=== PATIENT | female | born 1945 ===

== ENCOUNTER → 2020-01-11 08:54 | Outpatient (BNVA) | payer OTHER, SELFPAY | PROVIDERS: Visit Provider Surgery | DX: K43.2 Incisional hernia without obstruction or gangrene (principal) | CPT/HCPCS: 99202; 99212 ==

== ENCOUNTER 2020-02-02 09:40 | Outpatient (REF) | payer OTHER, SELFPAY ==
--- NOTE | 2020-02-02 09:42 | CT_ITS ---
EXAMINATION: CT ABDOMEN AND PELVIS WITHOUT CONTRAST CLINICAL INFORMATION: Incisional hernia without obstruction COMPARISON: None TECHNIQUE: Multidetector volumetric imaging was performed from the superior aspect of the liver through the pubic symphysis. Sagittal and coronal reformatted images were obtained on the technologist's workstation. This CT examination was performed using dose optimization techniques as appropriate, variously including the following: *Automated exposure control *Adjustment of mA and/or kV according to patient size (this includes techniques or standardized protocols for targeted exams where dose is matched to indication/reason for exam; i.e. extremities or head) *Use of iterative reconstruction technique DLP: 671 mGy-cm FINDINGS: LUNG BASES: The lung bases are clear. There is coronary artery calcification. LIVER, GALLBLADDER, AND BILIARY TREE: The liver is normal in size, shape, and attenuation. No focal hepatic lesion or biliary ductal dilatation is present. The gallbladder is been removed. PANCREAS: Unremarkable. SPLEEN: Unremarkable. ADRENAL GLANDS: There is a 2 x 2.2 cm low-attenuation left adrenal lesion. Hounsfield units measure -7 suggestive of a benign lipid rich adenoma. The right adrenal gland is normal. KIDNEYS AND URETERS: There are right renal cysts. Largest cyst measures 5 cm. The left kidney is unremarkable. BLADDER: Not optimally distended. GASTROINTESTINAL TRACT: There is diverticulosis of the colon. There are postsurgical changes to the sigmoid colon. There is a abdominal wall hernia containing transverse colon. There are no dilated loops of bowel to suggest obstruction. ABDOMINAL WALL: There are postsurgical changes to the anterior abdominal wall with large ventral mesh. There are least 2 defects in the mesh in the midline. Smaller more superior area contains fat and measures 3.5 x 2.3 x 4.8 cm in sagittal AP and transverse dimension with a 1.5 cm neck. There is a more inferior defect in the midline mesh containing fat and transverse colon. This area measures 5.2 x 3 x 7 cm in sagittal, AP and transverse dimension and has a wider 2 cm neck. This is just above the umbilicus. There is a left inguinal hernia containing fat. LYMPH NODES: Normal. VASCULAR: There is evidence of atherosclerotic disease. No aneurysm is seen. PELVIC VISCERA: The uterus appears to have been removed. No pelvic mass is seen. OSSEOUS STRUCTURES: There are degenerative changes of the spine. There is mild anterior subluxation of L4 with respect L5 probably due to facet arthritis. CT/CT abdomen pelvis wo con IMPRESSION: Evidence of large ventral hernia repair with mesh. There are 2 midline defects in the mesh, smaller more superior defect containing fat and larger more inferior defect just above the umbilicus containing transverse colon and fat. There is no evidence of obstruction. Small left inguinal hernia containing fat. Diverticulosis and postsurgical change to the sigmoid colon. Right renal cysts. Left adrenal adenoma.
== END 2020-02-02 09:41 | disposition home or self-care (01) ==
LOC: HO.CT 09:40
PROVIDERS: Visit Provider Surgery
DX: K43.2 Incisional hernia without obstruction or gangrene (principal)
CPT/HCPCS: 74176

== ENCOUNTER → 2020-02-07 11:09 | Outpatient (BNVA) | payer OTHER, SELFPAY | PROVIDERS: PCP Internal Medicine; Visit Provider Surgery | DX: K43.2 Incisional hernia without obstruction or gangrene (principal) | CPT/HCPCS: 99212 ==

== ENCOUNTER 2020-04-30 09:13 | Inpatient (IN) | payer OTHER, SELFPAY ==
[2020-04-24 12:08] VITALS: BMI 38.0
--- NOTE | 2020-04-25 14:39 | HO.ANESPROP2 ---
Documented by User: Shanna Maldonado 04/26/20 08:12 HPI - Anesthesia Eval Consult details Narrative: 75yo F for Hernia Repair Incisional PCP cleared [facility] Active Problems Active Problems: All Active Problems (Updated 04/23/20 @ 15:22 by Rosenda Strickland) Incisional hernia, without obstruction or gangrene (Acute) Diverticula, colon (Acute) Diabetes mellitus (Acute) HTN (hypertension) with goal to be determined (Acute) Past Medical History Medical History CAD (coronary artery disease) Cancer COVID-19 vaccine administered Diabetes mellitus Elevated cholesterol HTN (hypertension) with goal to be determined Incisional hernia, without obstruction or gangrene Myocardial infarction Personal history of COVID-19 Thyroid disease Surgical History Surgical History Diverticula, colon History of carpal tunnel surgery of right wrist History of colon resection History of excision of mass History of heart artery stent History of hysterectomy for benign disease History of knee surgery History of umbilical hernia repair Hx of cataract extraction Hx of cholecystectomy Hx of partial nephrectomy Hx of thyroidectomy Social History Social History Are you a primary healthcare market consultant to a significant other at home: No Smoking Status: Never smoker Use of substances other than those prescribed or required for medical reasons: No Have you been hit, kicked, punched, or otherwise hurt by someone within the past year? If so, by whom?: No Advance Directives Information Provided: No Recently lost weight without trying: No Meds Allergies Allergy/AdvReac Type Severity Reaction Status Date / Time penicillin G [Penicillin G] Allergy Mild RASH Verified 02/07/20 11:34 Home Medications Medication Instructions Recorded Confirmed Last Taken Type albuterol sulfate 90 mcg/actuation 90 mcg INHALATION Q4H PRN 01/11/20 04/23/20 Unknown History aerosol inhaler aspirin 81 mg tablet,delayed 81 mg PO DAILY 01/11/20 04/23/20 Unknown History release blood sugar diagnostic #10 ea 01/11/20 01/11/20 Unknown History gabapentin 100 mg capsule 100 mg PO BEDTIME 01/11/20 04/23/20 Unknown History hydrochlorothiazide 25 mg tablet 25 mg PO DAILY 01/11/20 04/30/20 04/30/20 05:00 History losartan 100 mg tablet 100 mg PO DAILY 01/11/20 04/23/20 Unknown History omeprazole 20 mg capsule,delayed 20 mg PO DAILY 01/11/20 04/30/20 04/30/20 05:00 History release potassium chloride 10 mEq 10 meq PO BID 01/11/20 04/23/20 Unknown History tablet,extended release sertraline 50 mg tablet 150 mg PO Q OTHER DAY 01/11/20 04/23/20 Unknown History atorvastatin 1 tab PO DAILY 04/23/20 04/23/20 Unknown History levothyroxine 1 tab PO DAILY 04/23/20 04/23/20 Unknown History metformin 2 tab PO QAM 04/23/20 04/23/20 Unknown History nitroglycerin 1 tab SUBLINGUAL NEEDED 04/23/20 04/23/20 Unknown History Exam Exam Date and Time: April 25, 2020 1439 Height,Weight and Vital Signs: Height 5 ft Weight 88.451 kg Pertinent Lab Results Pertinent Lab Results: 03/01/20 CBC - WNL BMP - WNL Narrative Narrative: Echo 11/2019 Nml LV size Mild conc LVH No RWMA Nml LV sys function LVEF 60-65% E-A reversal consistant with mild diastolic relaxation abn Trace MR, Trace TR, Trace NC Pharm Stress 09/2019 Nml Nuc stress, no evidence of ischemia or infarct. LV size is equal at rest and during stress. Gated images revealed nml LV wall motion and thickening; nml LV sys function (LVEF 82%) Assessment and Plan Assessment Anesthesia Assessment: Chart Reviewed Documented by User: Bhumika Triplett 04/30/20 07:49 [facility] Past Medical History Medical History CAD (coronary artery disease) Cancer COVID-19 vaccine administered Diabetes mellitus Elevated cholesterol HTN (hypertension) with goal to be determined Incisional hernia, without obstruction or gangrene Myocardial infarction Personal history of COVID-19 Thyroid disease Surgical History Surgical History Diverticula, colon History of carpal tunnel surgery of right wrist History of colon resection History of excision of mass History of heart artery stent History of hysterectomy for benign disease History of knee surgery History of umbilical hernia repair Hx of cataract extraction Hx of cholecystectomy Hx of partial nephrectomy Hx of thyroidectomy Social History Social History Are you a primary healthcare market consultant to a significant other at home: No Smoking Status: Never smoker Use of substances other than those prescribed or required for medical reasons: No Have you been hit, kicked, punched, or otherwise hurt by someone within the past year? If so, by whom?: No Advance Directives Information Provided: No Recently lost weight without trying: No Meds Allergies Allergy/AdvReac Type Severity Reaction Status Date / Time penicillin G [Penicillin G] Allergy Mild RASH Verified 02/07/20 11:34 Home Medications Medication Instructions Recorded Confirmed Last Taken Type albuterol sulfate 90 mcg/actuation 90 mcg INHALATION Q4H PRN 01/11/20 04/23/20 Unknown History aerosol inhaler aspirin 81 mg tablet,delayed 81 mg PO DAILY 01/11/20 04/23/20 Unknown History release blood sugar diagnostic #10 ea 01/11/20 01/11/20 Unknown History gabapentin 100 mg capsule 100 mg PO BEDTIME 01/11/20 04/23/20 Unknown History hydrochlorothiazide 25 mg tablet 25 mg PO DAILY 01/11/20 04/30/20 04/30/20 05:00 History losartan 100 mg tablet 100 mg PO DAILY 01/11/20 04/23/20 Unknown History omeprazole 20 mg capsule,delayed 20 mg PO DAILY 01/11/20 04/30/20 04/30/20 05:00 History release potassium chloride 10 mEq 10 meq PO BID 01/11/20 04/23/20 Unknown History tablet,extended release sertraline 50 mg tablet 150 mg PO Q OTHER DAY 01/11/20 04/23/20 Unknown History atorvastatin 1 tab PO DAILY 04/23/20 04/23/20 Unknown History levothyroxine 1 tab PO DAILY 04/23/20 04/23/20 Unknown History metformin 2 tab PO QAM 04/23/20 04/23/20 Unknown History nitroglycerin 1 tab SUBLINGUAL NEEDED 04/23/20 04/23/20 Unknown History Exam Airway Mallampati Class: I TM Dist: >3cm Neck ROM: Full Denture: Upper Partial: Lower Loose/Missing/Broken Teeth: Yes, Upper and Lower Heart: RRR Lungs: CTA Assessment and Plan Assessment Anesthesia Assessment: Anesthesia Plan Discussed, PAT Visit and Chart Reviewed Final Anesthetic Review NPO: Yes ASA Class: III Final Preanesthetic Review: Meds/Allgs Chart Reviewed, Consent Obtained/Reviewed and Anes Risks/Benef Reviewed Patient Risk: Intermediate Procedure Risk: Low Anesthetic Plan Anesthetic Plan: GA Disposition: Standard PACU
[2020-04-30] VITALS (20 sets, daily range): BP systolic 90–160; BP diastolic 45–89; PULSE 61–72; RESP 14–18; TEMP 36.1–37; O2SAT 92–100
[2020-04-30 06:39] LABS: Glucose, Whole Blood 149 mg/dL (60-115)
[2020-04-30] MEDS: Lactated Ringers 1,000 ML 100 ML IVCONT (06:51)
--- NOTE | 2020-04-30 07:27 | MHC.SHP ---
Pre-Procedural Eval Section B Chief Complaint: Incisional hernia, without obstruction or gangrene Details of Present Illness: has incisional hernia on upper abdomen Relevant Family History (Specify if Yes): No Relevant Social History: None Present Medications: see Short Stay Collaborative assessment Medical History: Significant History (ischemic heart ds, asthma, DM) History of Previous Operations: Relevant previous surgery/procedure and date(s) (hernia repair, surgery for diverticulitis(?)) Allergies: Allergies Allergy/AdvReac Type Severity Reaction Status Date / Time penicillin G [Penicillin G] Allergy Mild RASH Verified 02/07/20 11:34 Review of Systems Sugical H&P ROS: Negative: Constitution, Cardiovascular, Respiratory, Neurological, Psychiatric, Hem-Onc, Allergic/Immunologic, Gastrointestinal, Genitourinary, Musculoskeletal, Integumentary, Endocrine and Eyes/Ears/Nose/Throat Exam Surgical H&P Exam: Normal: HEENT, Normal: Heart, Normal: Lungs, Normal: Extremities, Normal: Skin and Normal: Neurological and Significant Findings: Abdomen (hernia, upper abdomen) Plan Diagnosis/Plan: Unchanged I have reviewed the history and physical and performed a pertinent physical examination on my patient. No changes have occurred unless specified.
--- NOTE | 2020-04-30 08:50 | PM.OP ---
Brief Operative Note Date of Service: 04/30/20 Pre-op diagnosis: recurrent incisional hernias, multiple Post-op diagnosis: same Procedure: repair of incisional hernias with mesh Implants: mesh Surgeon: Jackson Barker MD Anesthesia: ROSA Apparel Cutter: Jackelin Morrell Estimated blood loss (mL): 20 Pathology: none sent Condition: stable Disposition: PACU
--- NOTE | 2020-04-30 08:51 | W.PM.OPN ---
Operative Note Operative Note Date of Service: 04/30/20 Narrative: PREOP DIAGNOSIS: MULTIPLE INCISIONAL HERNIAS, RECURRENT POSTOP DIAGNOSIS: THE SAME PROCEDURE: REPAIR OF MULTIPLE INCISIONAL HERNIAS, WITH VENTRIO ST MESH, LYSIS OF ADHESIONS ANESTHESIA: GENERAL VIA ENDOTRACHEAL TUBE SURGEON: JENNIE URIAS MD CONSTRUCTION EQUIPMENT MECHANIC: PERLA CHRIS The patient is a 75 year female with history of incisional hernia repair in the past, referred to me in the office because of I recurrent hernia. She had apparently previously undergone surgery for diverticulitis (?) in the past and had developed a hernia. This had been repaired with mesh in a different institution. The hernia had recurred and a CAT scan showed multiple hernias on the upper abdomen, with some bowel loops. In view of discomfort she wanted proceed with repair. She understood technique of repair with mesh. She was aware of the risks, benefits, and alternatives. This had been discussed with her son Chris as well. She was brought to the operating room and placed supine on table under general anesthesia via endotracheal tube. The abdomen was prepped and draped in the usual sterile fashion. A surgical time-out was done. The patient received cefazolin 2 g IV preoperatively. The hernia was palpated on the upper abdomen, and the planned line of incision in the midline was infiltrated with lidocaine 1%. The incision was made on the skin along an old incision using a blade number 15 and this was carried down through the full-thickness skin with electrocautery. I continued to use electrocautery to divide across the subcutaneous layer carefully until I was able to visualize hernia sac. We gently the hernia sac with blunt dissection using electrocautery as well as Metzenbaum scissors off of the rest of subcutaneous layer. I carefully defined the sacs down to the fascia. I opened up the hernia sac to have better visualization and exposure of the fascial defect. I had therefore entered the peritoneal cavity at this point.. I defined the fascial defect by dividing the sac off of the fascial defect.. The biggest hernia was most in inferior, just above the umbilicus, measuring about 3 cm. . There were however multiple other palpable hernias cephalad to this. These were by bands of fascia. I carefully divided across this fascial bands to connect all these hernias. There were 3 of these hernias that I could palpate. I therefore made this as 1 incisional hernia and the aggregate length was about 7 cm. The width was about 5 cm. I applied Alba clamps on the fascia to lift this up and examined the underside. There were note of some adhesions the right side in the inferior aspect with some tethering of small bowel loops. We carefully divided this with Metzenbaum scissors and electrocautery to free up the entire margins of the fascia. Lysis of adhesions therefore WAS done to separate all these bowel loops and omentum from the underside of the defect. There were no other adhesions that could be seen that would get in the way of placement of mesh. We carefully examined the bowel loops underneath the fascial defect and these all appeared to be healthy and without any injuries. Based on the dimensions of the mesh, I chose a Ventrio ST mesh, 11 x 14 cm in size. This was flattened underneath the bowel wall. I then secured the Prolene side of the mesh to the fascia with transfascial Prolene 2-0 sutures on 4 quadrants to secure the mesh. I then proceeded to place additional circumferential row of transfascial sutures with Prolene 2 sutures to eliminate any gaps as well in the same manner. Multiple of these transfascial sutures were placed using the Prolene side of the mesh circumferentially. We made sure that there were no bowel loops trapped between the mesh and the abdominal wall as we placed these transfascial sutures. After completion of these transfascial sutures, I proceeded to check for any other gaps between the sutures. There were none, and there was no evidence of any bowel loops caught between the mesh and the abdominal wall. I then closed the fascia with a Maxon 1 running stitch. This was achieved without any tension. I irrigated the area. There was note of sac on the right side and the inferior aspect so I cauterized the lining of the sac to prevent seroma formation. The subcutaneous layer was reapposed with multiple Dexon 3-0 interrupted sutures. Skin closure was achieved with skin ruthann. The incision was then infiltrated with Marcaine 0.5% for postop analgesia.Dressings were applied. The procedure was then completed. The patient tolerated well. There were no immediate complications. Initial and final counts of sponges and instruments were correct. Estimated blood loss was about 20 cc. The patient was extubated without difficulty and transferred to recovery room with stable vital signs.
[2020-04-30] MEDS: oxyCODONE HCl Immed Release 5 MG TABLET PO (10:22)
[2020-04-30] MEDS: Acetaminophen 325 MG TABLET 650 MG PO (10:22)
--- NOTE | 2020-04-30 13:40 | P.EN_ITS ---
Event Note Date of Service: 04/30/20 Event Note: Patient underwent repair recurrent incisional hernia with mesh ear lier today Still in PACU, waiting availability of med surge room Seems to have good pain control Stable vital signs Abdomen soft Son Chris updated by phone Continue pain management
[2020-04-30 18:32] LABS: Glucose, Whole Blood 191 mg/dL (60-115)
[2020-04-30 20:20] LABS: Glucose, Whole Blood 262 mg/dL (60-115)
[2020-04-30] MEDS: Docusate Sodium 100 MG CAPSULE PO (20:32)
[2020-04-30] MEDS: Insulin Lispro 100 UNIT/ML 3 ML VIAL SUBCUT (20:32)
[2020-04-30] MEDS: Gabapentin 100 MG CAPSULE PO (20:32)
[2020-04-30] MEDS: 0.9 % Sodium Chloride Flush 3 ML SYRINGE IVFLUSH (20:32)
[2020-05-01] VITALS (7 sets, daily range): BP systolic 102–172; BP diastolic 47–75; PULSE 55–62; RESP 17–18; TEMP 36.2–36.6; O2SAT 95–97; BMI 38.0
[2020-05-01] MEDS: oxyCODONE HCl Immed Release 5 MG TABLET PO ×2 (00:07→17:13)
[2020-05-01 06:10] LABS: Anion Gap 13 (12-20); Blood Urea Nitrogen 20 mg/dL (9-16); Calcium 7.5 mg/dL (8.4-10.2); Carbon Dioxide 28 mmol/L (22-29); Chloride 95 mmol/L (96-108); Creatinine Clr Calc Pharmacy 49.6; Estimated Glomerular Filt Rate 58; Glucose Random 183 mg/dL (60-115); Potassium 3.6 mmol/L (3.3-5.1); Sodium 132 mmol/L (135-145)
[2020-05-01] MEDS: Levothyroxine Sodium 112 MCG TABLET PO (06:20)
[2020-05-01] MEDS: Omeprazole 20 MG CAPSULE.DR PO (06:20)
[2020-05-01 08:23] LABS: Glucose, Whole Blood 161 mg/dL (60-115)
[2020-05-01] MEDS: Insulin Lispro 100 UNIT/ML 3 ML VIAL SUBCUT ×2 (08:30→20:46)
[2020-05-01] MEDS: Heparin Sodium,Porcine 5,000 UNIT/ML VIAL 5000 UNIT SUBCUT ×2 (08:31→17:14)
[2020-05-01] MEDS: hydroCHLOROthiazide 25 MG TABLET PO (08:32)
[2020-05-01] MEDS: Sertraline HCL 100 MG TABLET PO (08:32)
[2020-05-01] MEDS: Docusate Sodium 100 MG CAPSULE PO ×2 (08:32→20:46)
[2020-05-01] MEDS: Losartan Potassium 50 MG TABLET 100 MG PO (08:32)
--- NOTE | 2020-05-01 08:32 | PM.PNGS ---
Subjective Subjective Date of Service: 05/01/20 <Jackelin Morrell PA-C - Last Filed: 05/01/20 08:36> 05/01/20 <Jackson Barker MD - Last Filed: 05/01/20 08:46> Interval history: Has pain at incision site. Comfortable with medication. Tolerating diet without N/V. Has not been OOB yet. <Jackelin Morrell PA-C - Last Filed: 05/01/20 08:36> Physical Exam Vital Signs: Vital Signs: Last Vital Signs Temp 97.7 F 05/01/20 07:54 Pulse 57 05/01/20 07:54 Resp 17 05/01/20 07:54 BP 116/58 L 05/01/20 07:54 Pulse Ox 97 05/01/20 07:54 Body Mass Index 38.0 <ANTONIO Fierro Last Filed: 05/01/20 08:36> Const: General: comfortable, no acute distress and alert <Jackelin Morrell PA-C - Last Filed: 05/01/20 08:36> Orientation/consciousness: patient oriented x3 <Jackelin Morrell PA-C - Last Filed: 05/01/20 08:36> Eyes: Sclerae: sclerae normal <ANTONIO Fierro Last Filed: 05/01/20 08:36> Resp: Effort & Inspection: normal respiratory effort <Jackelin Morrell PA-C - Last Filed: 05/01/20 08:36> Cardio: Rate: regular rate <Jackelin Morrell PA-C - Last Filed: 05/01/20 08:36> GI: Inspection: No distended and Yes incision (dressing c/d/i) <ANTONIO Fierro Last Filed: 05/01/20 08:36> Palpation (GI): Soft to palpation, not firm, Tenderness to palpation present (GI) (mild incisional tenderness), no guarding and not rigid <ANTONIO Fierro Last Filed: 05/01/20 08:36> Skin: General skin exam: no rashes or lesions noted <Jackelin Morrell PA-C - Last Filed: 05/01/20 08:36> Neuro: General: patient oriented x3 <Jackelin Morrell PA-C - Last Filed: 05/01/20 08:36> Extrem: General: Yes no clubbing, cyanosis or edema <Jackelin Morrell PA-C - Last Filed: 05/01/20 08:36> Progress Note: A&P Assessment and plan (1) Incisional hernia, without obstruction or gangrene: Status: Acute <Jackelin Morrell PA-C - Last Filed: 05/01/20 08:36> Assessment and Plan: Status post repair of incisional hernias with mesh Looks well Seems to have adequate pain control She states however that she may not be ready to be discharged today Encouraged to ambulate Abdomen soft Doing well postop Seen and examined-agree with PERLA Morrell <Jackson Barker MD - Last Filed: 05/01/20 08:46> (2) Diabetes mellitus: Problem details: NIDDM, ISS. <Jackelin Morrell PA-C - Last Filed: 05/01/20 08:36> Status: Acute <ANTONIO Fierro Last Filed: 05/01/20 08:36> Assessment and Plan: Resume metformin. <Jackelin Morrell PA-C - Last Filed: 05/01/20 08:36> (3) History of incisional hernia repair: Problem details: POD #1 <Jackelin Morrell PA-C - Last Filed: 05/01/20 08:36> Status: Acute <Jackelin Morrell PA-C - Last Filed: 05/01/20 08:36> Assessment and Plan: Doing well post op, comfortable with analgesics. Tolerating solid diet. VSS. Abd exam benign- soft, mild incisional tenderness, dressing c/d/i. Encouraged OOB/ambulation. Likely home tomorrow if pain control adequate. <Jackelin Morrell PA-C - Last Filed: 05/01/20 08:36> Fall Risk Details Current Medications: Current Medications Generic Name Dose Route Start Last Admin Trade Name Freq PRN Reason Stop Dose Admin Acetaminophen 650 mg 04/30/20 09:04 Acetaminophen 325 Mg Tablet PO Q6H PRN Pain, Mild (Pain Scale 1-3) Albuterol Sulfate 1 puff 04/30/20 09:08 Albuterol Sulfate 90 Mcg 8 Gm Inhaler INHALE Q4H PRN Shortness Of Breath Atorvastatin Calcium 40 mg 05/01/20 21:00 Atorvastatin Calcium 40 Mg Tablet PO BEDTIME [facility] Docusate Sodium 100 mg 04/30/20 21:00 04/30/20 20:32 Docusate Sodium 100 Mg Capsule PO 100 mg BID ROHIT Administration Gabapentin 100 mg 04/30/20 21:00 04/30/20 20:32 Gabapentin 100 Mg Capsule PO 100 mg BEDTIME [facility] Administration Heparin Sodium (Porcine) 5,000 unit 05/01/20 10:00 Heparin Sodium,Porcine 5,000 Unit/Ml Vial SUBCUT Q8H [facility] Hydrochlorothiazide 25 mg 05/01/20 09:00 Hydrochlorothiazide 25 Mg Tablet PO DAILY [facility] Protocol Insulin Human Lispro 0 unit 04/30/20 11:30 04/30/20 20:32 Insulin Lispro 100 Unit/Ml 3 Ml Vial SUBCUT 6 unit QIDACHS [facility] Administration Protocol Levothyroxine Sodium 112 mcg 05/01/20 06:30 05/01/20 06:20 Levothyroxine Sodium 112 Mcg Tablet PO 112 mcg DAILY@0630 [facility] Administration Losartan Potassium 100 mg 05/01/20 09:00 Losartan Potassium 50 Mg Tablet PO DAILY [facility] Protocol Morphine Sulfate 2 mg 04/30/20 09:04 Morphine Sulfate 2 Mg/Ml Cartridge IVPUSH Q4H PRN Pain, Severe (Pain Scale 7-10) Nitroglycerin 0.4 mg 04/30/20 09:09 Nitroglycerin 0.4 Mg Tab.Subl SUBLINGUAL Q5MX3 PRN chest pain Omeprazole 20 mg 05/01/20 06:30 05/01/20 06:20 Omeprazole 20 Mg Capsule.Dr PO 20 mg DAILY@0630 [facility] Administration Ondansetron HCl 4 mg 04/30/20 09:04 Ondansetron Hcl 4 Mg/2 Ml Vial IVPUSH Q8H PRN Nausea and Vomiting Oxycodone HCl 5 mg 04/30/20 09:04 05/01/20 00:07 Oxycodone Hcl Immed Release 5 Mg Tablet PO 5 mg Q4H PRN Administration Pain, Moderate (Pain Scale 4-6 Potassium Chloride 10 meq 04/30/20 21:00 04/30/20 20:32 Potassium Chloride Er 10 Meq Capsule.Er PO 10 meq BID ROHIT Administration Sertraline HCl 100 mg 05/01/20 09:00 Sertraline Hcl 100 Mg Tablet PO DAILY ROHIT Sodium Chloride 3 ml 04/30/20 16:00 04/30/20 20:32 0.9 % Sodium Chloride Flush 3 Ml Syringe IVFLUSH 3 ml QSHIFT ROHIT Administration <Jackelin Morrell PA-C - Last Filed: 05/01/20 08:36> Time Spent With Patient Time: Total time spent is greater than 50% in coordination of care (as documented) at patient's floor/unit and/or counseling patient: <Jackelin Morrell PA-C - Last Filed: 05/01/20 08:36> Time with patient: 15 - 24 minutes <Jackelin Morrell PA-C - Last Filed: 05/01/20 08:36>
[2020-05-01] MEDS: 0.9 % Sodium Chloride Flush 3 ML SYRINGE IVFLUSH ×3 (08:33→20:47)
--- NOTE | 2020-05-01 09:03 | MHC.CM.PN ---
CM met with Patient at bedside and addressed IMM (PATIENT GIVEN ORIGINAL, IN [place] & A COPY HAS BEEN PLACED ON THE CHART)and per Patient's request, spoke with Son/HCP/Norm. Patient lives in an apartment with her and she uses a walker to assist with mobility. Patient receives [facility] & RN services and her goal is to return home and resume these services. CM has initiated and will follow for dc planning. PCP is through in [place].
--- NOTE | 2020-05-01 10:20 | HO.POSTANES ---
Post Anesthesia Evaluation Post Anesthesia Evaluation Vital Signs: Vital Signs Temp Pulse Resp BP Pulse Ox 05/01/20 08:32 57 116/58 L 05/01/20 07:54 97.7 F 57 17 116/58 L 97 05/01/20 04:09 97.1 F 55 18 102/47 L 95 05/01/20 00:03 62 118/57 L 04/30/20 23:55 97.6 F 62 18 90/45 L 92 Anesthesia: General Endotracheal-GETA Mental Status: Awake Pain Control: Satisfactory Nausea/Vomiting: None Hydration: Adequate Anesthesia-Related Issues: No Anes. Related Issues
[2020-05-01] MEDS: metFORMIN HCl 1,000 MG TABLET 1000 MG PO (10:43)
[2020-05-01 11:56] LABS: Glucose, Whole Blood 141 mg/dL (60-115)
[2020-05-01 16:33] LABS: Glucose, Whole Blood 126 mg/dL (60-115)
[2020-05-01 20:23] LABS: Glucose, Whole Blood 199 mg/dL (60-115)
[2020-05-01] MEDS: Acetaminophen 325 MG TABLET 650 MG PO (20:44)
[2020-05-01] MEDS: Atorvastatin Calcium 40 MG TABLET PO (20:45)
[2020-05-01] MEDS: Gabapentin 100 MG CAPSULE PO (20:46)
[2020-05-02] MEDS: Heparin Sodium,Porcine 5,000 UNIT/ML VIAL 5000 UNIT SUBCUT ×2 (02:43→09:25)
[2020-05-02] MEDS: Levothyroxine Sodium 112 MCG TABLET PO (05:35)
[2020-05-02] MEDS: Omeprazole 20 MG CAPSULE.DR PO (05:35)
[2020-05-02] MEDS: Acetaminophen 325 MG TABLET 650 MG PO (05:41)
--- NOTE | 2020-05-02 07:40 | P.PNGS_ITS ---
Subjective Subjective Date of Service: 05/02/20 <Jackelin Morrell PA-C - Last Filed: 05/02/20 07:43> 05/02/20 <Jackson Barker MD - Last Filed: 05/02/20 08:12> Interval history: Feels ok, comfortable with analgesics. Was OOB yesterday. Tolerating diet. <Jackelin Morrell PA-C - Last Filed: 05/02/20 07:43> Physical Exam Vital Signs: Vital Signs: Last Vital Signs Temp 97.3 F 05/01/20 23:37 Pulse 56 05/01/20 23:37 Resp 18 05/01/20 23:37 BP 158/72 H 05/01/20 23:37 Pulse Ox 96 05/01/20 23:37 Body Mass Index 38.0 <Jackelin Morrell PA-C - Last Filed: 05/02/20 07:43> Const: General: comfortable, no acute distress and alert <Jackelin Morrell PA-C - Last Filed: 05/02/20 07:43> Orientation/consciousness: patient oriented x3 <Jackelin Morrell PA-C - Last Filed: 05/02/20 07:43> Eyes: Sclerae: sclerae normal <Jackelin Morrell PA-C - Last Filed: 07:43> Resp: Effort & Inspection: normal respiratory effort <Jackelin Morrell PA-C - Last Filed: 05/02/20 07:43> GI: Inspection: No distended and Yes incision (clean) <Jackelin Morrell PA-C - Last Filed: 05/02/20 07:43> Palpation (GI): Soft to palpation, not firm, Tenderness to palpation present (GI) (mild, incisional), no guarding, not rigid and No Rebound tenderness present <ANTONIO Fierro Last Filed: 05/02/20 07:43> Skin: General skin exam: no rashes or lesions noted <Jackelin Morrell PA-C - Last Filed: 05/02/20 07:43> Neuro: General: patient oriented x3 <ANTONIO Fierro Last Filed: 05/02/20 07:43> Extrem: General: Yes no clubbing, cyanosis or edema <Jackelin Morrell PA-C - Last Filed: 05/02/20 07:43> Progress Note: A&P Assessment and plan (1) Diabetes mellitus: Problem details: NIDDM <Jackelin Morrell PA-C - Last Filed: 05/02/20 07:43> Status: Acute <Jackelin Morrell PA-C - Last Filed: 05/02/20 07:43> (2) Incisional hernia, without obstruction or gangrene: Status: Acute <Jackelin Morrell PA-C - Last Filed: 05/02/20 07:43> Assessment and Plan: Status post repair with mesh Good pain control Looks well Abdomen soft, incision not infected, and well healing, repair intact Good GI function Okay to DC home Follow-up in the office DC instructions explained to patient Seen and examined-agree with PERLA Morrell <Jackson Barker MD - Last Filed: 05/02/20 08:12> (3) History of incisional hernia repair: Problem details: POD #2 <Jackelin Morrell PA-C - Last Filed: 05/02/20 07:43> Status: Acute <Jackelin Morrell PA-C - Last Filed: 05/02/20 07:43> Assessment and Plan: Doing well post op, comfortable with good pain control. VSS. Abd exam benign- incision clean, appropriate post op tenderness. Stable for d/c to home today. F/u with Dr. Barker in office. Patient comfortable with plan. Has RN/TITLE SEARCH MANAGER services in place at home already. <Jackelin Morrell PA-C - Last Filed: 05/02/20 07:43> Fall Risk Details Current Medications: Current Medications Generic Name Dose Route Start Last Admin Trade Name Freq PRN Reason Stop Dose Admin Acetaminophen 650 mg 04/30/20 09:04 05/02/20 05:41 Acetaminophen 325 Mg Tablet PO 650 mg Q6H PRN Administration Pain, Mild (Pain Scale 1-3) Albuterol Sulfate 1 puff 04/30/20 09:08 Albuterol Sulfate 90 Mcg 8 Gm Inhaler INHALE Q4H PRN Shortness Of Breath Atorvastatin Calcium 40 mg 05/01/20 21:00 05/01/20 20:45 Atorvastatin Calcium 40 Mg Tablet PO 40 mg BEDTIME ROHIT Administration Docusate Sodium 100 mg 04/30/20 21:00 05/01/20 20:46 Docusate Sodium 100 Mg Capsule PO 100 mg BID ROHIT Administration Gabapentin 100 mg 04/30/20 21:00 05/01/20 20:46 Gabapentin 100 Mg Capsule PO 100 mg BEDTIME ROHIT Administration Heparin Sodium (Porcine) 5,000 unit 05/01/20 10:00 05/02/20 02:43 Heparin Sodium,Porcine 5,000 Unit/Ml Vial SUBCUT 5,000 unit Q8H ROHIT Administration Hydrochlorothiazide 25 mg 05/01/20 09:00 05/01/20 08:32 Hydrochlorothiazide 25 Mg Tablet PO 25 mg DAILY ROHIT Administration Protocol Insulin Human Lispro 0 unit 04/30/20 11:30 05/01/20 20:46 Insulin Lispro 100 Unit/Ml 3 Ml Vial SUBCUT 2 unit QIDACHS ROHIT Administration Protocol Levothyroxine Sodium 112 mcg 05/01/20 06:30 05/02/20 05:35 Levothyroxine Sodium 112 Mcg Tablet PO 112 mcg DAILY@0630 [facility] Administration Losartan Potassium 100 mg 05/01/20 09:00 05/01/20 08:32 Losartan Potassium 50 Mg Tablet PO 100 mg DAILY ROHIT Administration Protocol Metformin HCl 1,000 mg 05/01/20 09:00 05/01/20 10:43 Metformin Hcl 1,000 Mg Tablet PO 1,000 mg DAILY ROHIT Administration Morphine Sulfate 2 mg 04/30/20 09:04 Morphine Sulfate 2 Mg/Ml Cartridge IVPUSH Q4H PRN Pain, Severe (Pain Scale 7-10) Nitroglycerin 0.4 mg 04/30/20 09:09 Nitroglycerin 0.4 Mg Tab.Subl SUBLINGUAL Q5MX3 PRN chest pain Omeprazole 20 mg 05/01/20 06:30 05/02/20 05:35 Omeprazole 20 Mg Capsule.Dr PO 20 mg DAILY@0630 ROHIT Administration Ondansetron HCl 4 mg 04/30/20 09:04 Ondansetron Hcl 4 Mg/2 Ml Vial IVPUSH Q8H PRN Nausea and Vomiting Oxycodone HCl 5 mg 04/30/20 09:04 05/01/20 17:13 Oxycodone Hcl Immed Release 5 Mg Tablet PO 5 mg Q4H PRN Administration Pain, Moderate (Pain Scale 4-6 Potassium Chloride 10 meq 04/30/20 21:00 05/01/20 20:45 Potassium Chloride Er 10 Meq Capsule.Er PO 10 meq BID ROHIT Administration Sertraline HCl 100 mg 05/01/20 09:00 05/01/20 08:32 Sertraline Hcl 100 Mg Tablet PO 100 mg DAILY ROHIT Administration Sodium Chloride 3 ml 04/30/20 16:00 05/01/20 20:47 0.9 % Sodium Chloride Flush 3 Ml Syringe IVFLUSH 3 ml QSHIFT ROHIT Administration <Jackelin Morrell PA-C - Last Filed: 05/02/20 07:43> Time Spent With Patient Time: Total time spent is greater than 50% in coordination of care (as documented) at patient's floor/unit and/or counseling patient: <Jackelin Morrell PA-C - Last Filed: 05/02/20 07:43> Time with patient: 15 - 24 minutes <Jackelin Morrell PA-C - Last Filed: 05/02/20 07:43>
[2020-05-02 08:20] LABS: Glucose, Whole Blood 123 mg/dL (60-115)
--- NOTE | 2020-05-02 08:56 | MHC.CM.PN ---
PATIENT IS DISCHARGED HOME SELF CARE. RN AWARE OF PLAN. PATIENT IS SELF ARRANGING TRANSPORT HOME
--- NOTE | 2020-05-02 09:21 | MHC.CM.PN ---
PATIENT IS DISCHARGED HOME WITH RESUMPTION OF SERVICES PROVIDED [facility]ROUGH [facility]. RN AWARE OF PLAN IMM 05/01 IN CHART
[2020-05-02 09:24] VITALS: BP 158/72; PULSE 56
[2020-05-02] MEDS: Losartan Potassium 50 MG TABLET 100 MG PO (09:24)
[2020-05-02] MEDS: Sertraline HCL 100 MG TABLET PO (09:25)
[2020-05-02] MEDS: metFORMIN HCl 1,000 MG TABLET 1000 MG PO (09:25)
[2020-05-02] MEDS: hydroCHLOROthiazide 25 MG TABLET PO (09:25)
[2020-05-02] MEDS: Docusate Sodium 100 MG CAPSULE PO (09:25)
[2020-05-02] MEDS: 0.9 % Sodium Chloride Flush 3 ML SYRINGE IVFLUSH (09:27)
--- NOTE | 2020-05-02 10:28 | MHC.CM.PN ---
NANCY OF [facility] ([phone]) IS AUTHORIZING VNA SERVICES AND AGREES THAT [facility] REFERRAL SHOULD BE PLACED. PATIENT AWARE. IMM 05/01 IN CHART.
--- NOTE | 2020-05-02 10:45 | W.MHC.F2F ---
Service Date Service Date: 05/02/20 Encounter Date of encounter: 05/02/20 Reasons for Services Signs and symptoms assessed: Abdominal pain, abdominal pain, incision appearance Reason for retirement: wound care and postoperative assessment and/or care MD Overseeing Care: Jackson Barker Homebound: Leaving the home is medically contraindicated at this time without the asist of a device and/or another person due th the listed conditions above and below. Reason homebound: weakness related to hospital stay and unable to drive Homebound supporting statement: Ms. Bojorquez is POD #2 s/p repair of incisional hernia with mesh. She is restricted from heavy lifting and is unable to drive. Please resume her home VNA services. Certification: Based on the above findings, I certify that this patient is confined to the home and needs intermittent retirement care, physical therapy and/or speech therapy, or continues to need occupational therapy. The patient is under my care, and I have initiated the establishment of the plan of care. The patient will be followed by a physician who will periodically review the plan of care.
--- NOTE | 2020-05-03 09:13 | PM.DS ---
DS: Providers Provider Date of Service: 05/03/20 Date of admission: 04/30/20 09:13 Primary care physician: Unknown Physician DS: Diagnosis Discharge Diagnosis (1) Incisional hernia, without obstruction or gangrene: Status: Acute (2) Diabetes mellitus: Status: Acute Problem details: NIDDM (3) History of incisional hernia repair: Status: Acute Problem details: POD #2 DS: Medications Discharge Medications Home Medications: Home Medications Medication Instructions Recorded Confirmed albuterol sulfate 90 mcg/actuation 90 mcg INHALATION Q4H PRN 01/11/20 04/23/20 aerosol inhaler aspirin 81 mg tablet,delayed 81 mg PO DAILY 01/11/20 04/23/20 release blood sugar diagnostic #10 ea 01/11/20 01/11/20 gabapentin 100 mg capsule 100 mg PO BEDTIME 01/11/20 04/23/20 hydrochlorothiazide 25 mg tablet 25 mg PO DAILY 01/11/20 04/30/20 losartan 100 mg tablet 100 mg PO DAILY 01/11/20 04/23/20 omeprazole 20 mg capsule,delayed 20 mg PO DAILY 01/11/20 04/30/20 release potassium chloride 10 mEq 10 meq PO BID 01/11/20 04/23/20 tablet,extended release atorvastatin 1 tab PO DAILY 04/23/20 04/23/20 levothyroxine 1 tab PO DAILY 04/23/20 04/23/20 metformin 2 tab PO QAM 04/23/20 04/23/20 nitroglycerin 1 tab SUBLINGUAL NEEDED 04/23/20 04/23/20 sertraline 1 tab PO DAILY 04/30/20 04/30/20 Previous Rx's Medication Instructions Recorded docusate sodium [Colace] 100 mg PO BID #30 cap 05/01/20 oxycodone-acetaminophen [Percocet] 1 - 2 tab PO Q4-6H PRN #20 tab 05/01/20 DS: Summary Hospital Course Hospital Course: BRIEF HPI: The patient is a 75 year female with history of incisional hernia repair with mesh around 5 years ago, referred to me in the office because of a recurrent hernia. She had apparently previously undergone surgery for diverticulitis in the past and had developed a hernia. This had been repaired with mesh in a different institution. The hernia had recurred and a CAT scan showed multiple hernias on the upper abdomen, some with bowel loops. In view of discomfort she wanted proceed with repair. She now presents for the procedure. HOSPITAL COURSE:On 04/30/20, repair of recurrent incisional hernia with mesh was performed by Dr. Jackson Barker without complication. The patient tolerated the procedure well and was admitted to the medical/surgical floor for observation. The patient had an uncomplicated recovery course. She stayed inpatient for 2 days for pain control and observation. She was tolerating a solid diet, had good pain control with PO analgesics and was ambulating without difficulty. Her abdomen was benign with appropriate post op tenderness and a clean incision. She felt ready for discharge. She was discharged to home on 05/02/20 in stable condition with resumption of her home QUALITY CONTROL SCIENTIST and VNA services. Status at Discharge Functional status at discharge: independent ambulation Overall status at discharge: patient is progressing back to baseline Time Spent with Patient Time attestation: Total time spent providing and/or coordinating discharge services: Discharge coordination time: Greater than 30 minutes Physical Exam Vital Signs: Vital Signs: Last Vital Signs Temp 97.3 F 05/01/20 23:37 Pulse 56 05/02/20 09:24 Resp 18 05/01/20 23:37 BP 158/72 H 05/02/20 09:24 Pulse Ox 96 05/01/20 23:37 Body Mass Index 38.0 Const: General: comfortable, no acute distress and alert Eyes: Sclerae: sclerae normal Resp: Effort & Inspection: normal respiratory effort Cardio: Rate: regular rate GI: Inspection: No distended and Yes incision (clean, no erythema) Palpation (GI): Soft to palpation, Tenderness to palpation present (GI) (mild, incisional), no guarding and not rigid Skin: General skin exam: no rashes or lesions noted Neuro: General: patient oriented x3 Extrem: Other: no edema DS: Data Data Completed and Pending Completed studies during hospitalization [Text1]: Procedures Supplement Abdominal Wall with Synthetic Substitute, Open Approach (04/30/20) Discharge Plan Discharge Anticipated Discharge Date/Time: 05/02/20 08:12 Patient Disposition: Home Health Service Referrals: [facility] [Outside] Jackson Barker MD [Physician] - 05/16/20 Physician,Unknown [Primary Care Provider] - Discharge Medications: New oxycodone-acetaminophen [Percocet] 5-325 mg tablet 1 - 2 tab PO Q4-6H PRN (Reason: pain) Qty: 20 RF: 0 docusate sodium [Colace] 100 mg capsule 100 mg PO BID Qty: 30 RF: 0 Continued atorvastatin 40 mg tablet 1 tab PO DAILY RF: 0 metformin 500 mg tablet 2 tab PO QAM RF: 0 nitroglycerin 0.4 mg tablet, sublingual 1 tab sublingual NEEDED RF: 0 levothyroxine 112 mcg tablet 1 tab PO DAILY RF: 0 sertraline 100 mg tablet 1 tab PO DAILY RF: 0 omeprazole 20 mg capsule,delayed release(DR/EC) 20 mg PO DAILY RF: 0 aspirin 81 mg tablet,delayed release (DR/EC) 81 mg PO DAILY RF: 0 hydrochlorothiazide 25 mg tablet 25 mg PO DAILY RF: 0 losartan 100 mg tablet 100 mg PO DAILY RF: 0 potassium chloride 10 mEq tablet extended release 10 meq PO BID RF: 0 albuterol sulfate 90 mcg/actuation HFA aerosol inhaler 90 mcg inhalation Q4H PRN (Reason: Shortness Of Breath) RF: 0 (DME) blood sugar diagnostic Strip See Rx Instructions ea Not Applicable DAILY Qty: 10 RF: 0 gabapentin 100 mg capsule 100 mg PO BEDTIME RF: 0 Discharge Orders: Discharge Order (Routine); Ordered 05/02/20 Ordered By: Jackelin Morrell Diet: diabetic diet Activity on Discharge: No heavy lifting Stand Alone Forms: Patient Portal Discharge page Activity Restrictions/Additional Instructions: If the incision area is tender, you may apply an ice pack for short intervals (No more than 20 minutes on, followed by at least 20 minutes off). Do not apply heat. Do not use creams, lotions, or topical antibiotics unless instructed to do so by your surgeon. These can cause infection or allergic reaction. Ok to shower. You have steri strips (small white cloth strips) covering your incision- these will fall off ~1 week. Call Your Doctor If: -Your temperature exceeds 101.5? F -You experience excessive pain or swelling -You have an unexpected reaction to medication -You have excessive bleeding -You experience continued vomiting/nausea -Your incision begins to separate -Your incision shows signs of infection such as increased redness, swelling, excessive pain, drainage (light blood or clear fluid is normal) or heat Care Plan Goals: Return to baseline health and activity following recovery period. Health Concerns: Diabetes mellitus, hypothyroidism, hypertension; s/p repair of recurrent incisional hernia with mesh Plan of Treatment: Discharge to home, f/u in office with Dr. Barker Discharge Date/Time: 05/02/20 11:38
== END 2020-05-02 11:38 | disposition home health service (06) | DRG 355 ==
LOC: HO.SSSA 09:15 → HO.S3 16:47
PROVIDERS: Physician Assistant Surgical; Admitting Provider Surgery; Visit Provider Surgery
PROC: 0WUF0JZ Supplement Abdominal Wall with Synthetic Substitute, Open Approach (ICD-10-PCS; principal; 2020-04-30 07:30)
DX: K43.2 Incisional hernia without obstruction or gangrene (principal); E11.9 Type 2 diabetes mellitus without complications; I25.2 Old myocardial infarction; Z88.0 Allergy status to penicillin; Z79.84 Long term (current) use of oral hypoglycemic drugs; Z79.82 Long term (current) use of aspirin; Z79.891 Long term (current) use of opiate analgesic; Z79.899 Other long term (current) drug therapy
CPT/HCPCS: 36415; 80048; 82947; C1781; J0690; J1100; J1885; J2405; J3010

== ENCOUNTER → 2020-05-16 10:14 | Outpatient (BNVA) | payer MEDICARE, SELFPAY | PROVIDERS: Visit Provider Surgery | DX: Z48.815 Encounter for surgical aftercare following surgery on the digestive system (principal); Z87.19 Personal history of other diseases of the digestive system | CPT/HCPCS: 99212 ==

== ENCOUNTER 2022-04-22 09:50 | Outpatient (REF) | payer OTHER, SELFPAY ==
--- NOTE | ~2022-04-22 | FL_ITS ---
EXAMINATION: FL FLUOROSCOPY UPPER GI WITH AIR CLINICAL INFORMATION: Gastroesophageal reflux disease without esophagitis. COMPARISON: None TECHNIQUE: Routine upper GI air-contrast study was performed in upright and lying position. FINDINGS: Following oral administration of thick barium and effervescent granules there is normal propagation of bolus from the oral cavity through the pharynx, through a significantly tight cricoesophageal sphincter into the esophagus and stomach. Mild poststenotic dilatation of the upper esophagus is seen. No laryngeal penetration or aspiration seen. There are surgical ruthann in the neck likely from previous thyroid intervention. Following placement of patient in the supine and prone position there is normal course, caliber and peristalsis of stomach, duodenal bulb and the sweep. There is mild gastroesophageal reflux with transient hiatal hernia. There is evidence of previous gastric hernia repair and cholecystectomy. FLUOROSCOPY TIME: 2.0 minutes. DOSE AREA PRODUCT: 136 uGy-m2 (microgray-meter squared) FL/FL upper GI w air IMPRESSION: Significantly tight cricoesophageal sphincter likely chronic narrowing. Recommend endoscopy and dilation. Mild gastroesophageal reflux with a small transient hiatal hernia.
== END 2022-04-22 09:51 | disposition home or self-care (01) ==
LOC: HO.XRAY 09:50
PROVIDERS: PCP Internal Medicine; Visit Provider Internal Medicine
DX: K21.9 Gastro-esophageal reflux disease without esophagitis (principal)
CPT/HCPCS: 74240; 74246

== ENCOUNTER → 2022-05-05 11:07 | Outpatient (BNVA) | payer OTHER, SELFPAY | PROVIDERS: PCP Internal Medicine; Visit Provider Surgery Vascular Surgery | DX: I83.11 Varicose veins of right lower extremity with inflammation (principal) | CPT/HCPCS: 99202 ==

== ENCOUNTER → 2022-05-11 09:55 | Outpatient (BNVA) | payer OTHER, SELFPAY | PROVIDERS: PCP Student in an Organized Health Care Education/Training Program; Visit Provider Internal Medicine | DX: R13.10 Dysphagia, unspecified (principal) | CPT/HCPCS: 99202 ==

== ENCOUNTER 2022-05-20 10:17 | Outpatient (REF) | payer OTHER, SELFPAY ==
--- NOTE | ~2022-05-20 | US_ITS ---
EXAMINATION: US LOWER EXTREMITY VENOUS (REFLUX EXAM), BILATERAL CLINICAL INDICATION: Chronic venous insufficiency with lower extremity varicose veins and inflammation COMPARISON: None. TECHNIQUE: Color flow triplex imaging and compression Doppler was performed to evaluate both the deep and the superficial systems bilaterally. To evaluate the superficial system, the examination was performed in the upright position. Color-flow Doppler ultrasound and compression ultrasound were utilized. In addition, maneuvers were utilized to demonstrate reflux. FINDINGS: 1. DEEP VENOUS ULTRASOUND OF THE RIGHT LOWER EXTREMITY: Common Femoral Vein: Compressible, normal respiratory variation and augmented flow. Femoral Vein: Compressible, normal color flow and augmentation. Popliteal Vein: Compressible, normal augmentation. Deep Reflux: There is no evidence of reflux in the deep system in either the common femoral vein or the popliteal vein. There is a Arnold's cyst in the popliteal fossa measuring 4.1 x 6.9 x 2.1 cm. There is a cyst seen in the subcutaneous soft tissues in the proximal medial thigh measuring 2.5 x 0.9 x 1.2 cm with some low-level internal echoes. Findings are consistent with a complex cyst, possibly hemorrhagic. No internal flow is seen on color Doppler. 2. SUPERFICIAL ULTRASOUND WITH DOPPLER OF RIGHT LOWER EXTREMITY: GREAT SAPHENOUS VEIN: Saphenofemoral Junction: 0.6 cm; Reflux: 0 ms Proximal Thigh: 0.4 cm; Reflux: 0 ms Mid Thigh: 0.4 cm; Reflux: 0 ms Above Knee: 0.4 cm; Reflux: 0 ms At Knee: 0.4 cm; Reflux: 0 ms Below Knee: 0.2 cm; Reflux: 0 ms Mid Calf: 0.2 cm; Reflux: 0 ms Ankle: 0.2 cm; Reflux: 0 ms DUPLICATED MEDIAL GREAT SAPHENOUS VEIN: Diameter: 0.4 Reflux: None DUPLICATED LATERAL GREAT SAPHENOUS VEIN: Diameter: None Imaged Reflux: NA SMALL SAPHENOUS VEIN: Proximal: 0.2 cm; Reflux: 0 ms Distal: 0.2 cm; Reflux: 0 ms VEIN OF GIACOMINI: None Imaged. PERFORATORS: Location: None significant Size: NA Reflux: NA VARICOSITIES: Location: None Imaged Size: NA Reflux: NA 3. DEEP VENOUS ULTRASOUND OF THE LEFT LOWER EXTREMITY: Common Femoral Vein: Compressible, normal respiratory variation and augmented flow. Femoral Vein: Compressible, normal color flow and augmentation. Popliteal Vein: Compressible, normal augmentation. Deep Reflux: There is no evidence of reflux in the deep system in either the common femoral vein or the popliteal vein. There is no evidence of a Arnold's cyst. 4. SUPERFICIAL ULTRASOUND WITH DOPPLER OF LEFT LOWER EXTREMITY: GREAT SAPHENOUS VEIN: Saphenofemoral Junction: 1.0 cm; Reflux: 0 ms Proximal Thigh: 0.4 cm; Reflux: 0 ms Mid Thigh: 0.5 cm; Reflux: 0 ms Above Knee: 0.3 cm; Reflux: 0 ms At Knee: 0.3 cm; Reflux: 0 ms Below Knee: 0.3 cm; Reflux: 0 ms Mid Calf: 0.3 cm; Reflux: 0 ms Ankle: 0.2 cm; Reflux: 0 ms DUPLICATED MEDIAL GREAT SAPHENOUS VEIN: Diameter: 0.3 cm Reflux: None DUPLICATED LATERAL GREAT SAPHENOUS VEIN: Diameter: 0.2 cm Reflux: None SMALL SAPHENOUS VEIN: Proximal: 0.3 cm; Reflux: 0 ms Distal: 0.1 cm; Reflux: 0 ms VEIN OF GIACOMINI: None Imaged. PERFORATORS: Location: None Imaged Size: NA Reflux: NA VARICOSITIES: Location: None Imaged Size: NA Reflux: NA US/US venous duplex LE BI IMPRESSION: Right: No significant superficial venous insufficiency or reflux. There is a large Arnold's cyst in the right popliteal fossa. There is an additional complex cyst in the subcutaneous soft tissues of the medial proximal thigh which could represent a hemorrhagic cyst. Left: No significant superficial venous insufficiency or reflux
== END 2022-05-20 10:18 | disposition home or self-care (01) ==
LOC: HO.US 10:17
PROVIDERS: PCP Internal Medicine; Visit Provider Surgery Vascular Surgery
DX: I83.893 Varicose veins of bilateral lower extremities with other complications (principal)
CPT/HCPCS: 93970

== ENCOUNTER 2022-05-21 10:46 | Day surgery (SDC) | payer OTHER, SELFPAY ==
[2022-05-18 13:46] VITALS: BMI 37.5
--- NOTE | 2022-05-20 13:34 | HO.ANESPROP2 ---
Documented by User: Shanna Maldonado NP 05/20/22 13:36 HPI - Anesthesia Eval Consult details Narrative: 77yo F for Upper Endoscopy with Balloon Dilitation Hx of NV, stent in 2010. Stable at PCP visit 01/2022 [facility] Active Problems Active Problems: All Active Problems (Updated 05/05/22 @ 11:51 by Mason Ash MD) History of incisional hernia repair (Acute) Hyperlipidemia LDL goal <70 (Acute) Essential hypertension (Acute) BRITTANI (generalized anxiety disorder) (Acute) Mild recurrent major depression (Acute) Postoperative hypothyroidism (Acute) Chronic GERD (Acute) Venous insufficiency (Acute) Lumbar pain (Acute) Abnormal upper gastrointestinal barium series (Acute) Varicose veins of right lower extremity with inflammation (Acute) Incisional hernia, without obstruction or gangrene (Acute) Diverticula, colon (Acute) Diabetes mellitus (Acute) HTN (hypertension) with goal to be determined (Acute) Past Medical History Medical History CAD (coronary artery disease) Cancer COVID-19 vaccine administered Diabetes mellitus Elevated cholesterol HTN (hypertension) with goal to be determined Incisional hernia, without obstruction or gangrene Myocardial infarction Personal history of COVID-19 Thyroid disease Family History Family History Mother No problems noted. Father No problems noted. Surgical History Surgical History Diverticula, colon History of carpal tunnel surgery of right wrist History of colon resection History of excision of mass History of heart artery stent History of hysterectomy for benign disease History of incisional hernia repair History of knee surgery History of umbilical hernia repair Hx of cataract extraction Hx of cholecystectomy Hx of partial nephrectomy Hx of thyroidectomy Social History Social History Household Members: Spouse Housing: House Are you a primary manager intensive care unit to a significant other at home: No Do you presently have visiting nurse or other home services: No Patient Tobacco Use Status: Never used Tobacco e-Cigarette/Vaping Use: Never Used Second Hand Smoke Exposure: No Are you DNR?: No Advance Directives: No Advance Directives Information Provided: Yes Nutrition Risks: No Nutritional Risk service: No Current occupational status: disabled Cognitive needs: Yes Hearing needs: No Vision needs: Yes Meds Allergies Allergy/AdvReac Type Severity Reaction Status Date / Time penicillin G [Penicillin G] Allergy Mild RASH Verified 05/11/22 10:11 Home Medications Medication Instructions Recorded Confirmed Last Taken Type albuterol sulfate 90 mcg/actuation 90 mcg inhalation Q4H PRN 01/11/20 05/18/22 Unknown History aerosol inhaler Shortness Of Breath aspirin 81 mg tablet,delayed 81 mg PO DAILY 01/11/20 05/18/22 05/18/22 History release blood sugar diagnostic #10 ea 01/11/20 01/20/22 Unknown History gabapentin 100 mg capsule 100 mg PO BEDTIME 01/11/20 05/18/22 Unknown History losartan 100 mg tablet 100 mg PO DAILY 01/11/20 05/18/22 Unknown History atorvastatin 40 mg tablet 1 tab PO DAILY 04/23/20 05/18/22 Unknown History metformin 500 mg tablet 2 tab PO QAM 04/23/20 05/18/22 Unknown History nitroglycerin 0.4 mg sublingual 1 tab sublingual NEEDED angina 04/23/20 05/18/22 Unknown History tablet sertraline 100 mg tablet 1 tab PO DAILY 04/30/20 05/18/22 Unknown History hydroxyzine HCl 25 mg tablet 25 mg PO BID 01/20/22 05/18/22 Unknown History levothyroxine 100 mcg tablet 100 mcg PO DAILY 01/20/22 05/18/22 Unknown History potassium chloride 20 mEq 20 meq PO DAILY 01/20/22 01/20/22 Unknown History tablet,extended release(part/cryst) (Klor-Con M) propranolol 20 mg tablet 20 mg PO TID 01/20/22 05/18/22 Unknown History Exam Exam Date and Time: May 20, 2022 1334 Height,Weight and Vital Signs: Height 5 ft Weight 87.2 kg Assessment and Plan Assessment Anesthesia Assessment: Chart Reviewed Documented by User: Betty Huber MD 05/21/22 11:40 [facility] Past Medical History Medical History CAD (coronary artery disease) Cancer COVID-19 vaccine administered Diabetes mellitus Elevated cholesterol HTN (hypertension) with goal to be determined Incisional hernia, without obstruction or gangrene Myocardial infarction Personal history of COVID-19 Thyroid disease Functional capacity: independent ambulation Patient : No Family History Family History Mother No problems noted. Father No problems noted. Family history of problems with anesthesia: No Surgical History Surgical History Diverticula, colon History of carpal tunnel surgery of right wrist History of colon resection History of excision of mass History of heart artery stent History of hysterectomy for benign disease History of incisional hernia repair History of knee surgery History of umbilical hernia repair Hx of cataract extraction Hx of cholecystectomy Hx of partial nephrectomy Hx of thyroidectomy History of Problems with Anesthesia: No Social History Social History Household Members: Spouse Housing: House Are you a primary manager intensive care unit to a significant other at home: No Do you presently have visiting nurse or other home services: No Patient Tobacco Use Status: Never used Tobacco e-Cigarette/Vaping Use: Never Used Second Hand Smoke Exposure: No Are you DNR?: No Advance Directives: No Advance Directives Information Provided: Yes Nutrition Risks: No Nutritional Risk service: No Current occupational status: disabled Cognitive needs: Yes Hearing needs: No Vision needs: Yes Meds Allergies Allergy/AdvReac Type Severity Reaction Status Date / Time penicillin G [Penicillin G] Allergy Mild RASH Verified 05/11/22 10:11 Home Medications Medication Instructions Recorded Confirmed Last Taken Type albuterol sulfate 90 mcg/actuation 90 mcg inhalation Q4H PRN 01/11/20 05/18/22 Unknown History aerosol inhaler Shortness Of Breath aspirin 81 mg tablet,delayed 81 mg PO DAILY 01/11/20 05/18/22 05/18/22 History release blood sugar diagnostic #10 ea 01/11/20 01/20/22 Unknown History gabapentin 100 mg capsule 100 mg PO BEDTIME 10/29/20 03/06/23 Unknown History losartan 100 mg tablet 100 mg PO DAILY 01/11/20 05/18/22 Unknown History atorvastatin 40 mg tablet 1 tab PO DAILY 04/23/20 05/18/22 Unknown History metformin 500 mg tablet 2 tab PO QAM 04/23/20 05/18/22 Unknown History nitroglycerin 0.4 mg sublingual 1 tab sublingual NEEDED angina 04/23/20 05/18/22 Unknown History tablet sertraline 100 mg tablet 1 tab PO DAILY 04/30/20 05/18/22 Unknown History hydroxyzine HCl 25 mg tablet 25 mg PO BID 01/20/22 05/18/22 Unknown History levothyroxine 100 mcg tablet 100 mcg PO DAILY 01/20/22 05/18/22 Unknown History potassium chloride 20 mEq 20 meq PO DAILY 01/20/22 01/20/22 Unknown History tablet,extended release(part/cryst) (Klor-Con M) propranolol 20 mg tablet 20 mg PO TID 01/20/22 05/18/22 Unknown History Exam Airway Mallampati Class: IV TM Dist: >3cm Neck ROM: Full Heart: RRR Lungs: CTA Assessment and Plan Final Anesthetic Review Family History of Problems with Anesthesia: No History of Problems with Anesthesia: No ASA Class: III Final Preanesthetic Review: No Changes in Pt Med Stat, Meds/Allgs Chart Reviewed, Consent Obtained/Reviewed and Anes Risks/Benef Reviewed Patient Risk: Intermediate Procedure Risk: Low Anesthetic Plan Anesthetic Plan: MAC: Disposition: Standard PACU
[2022-05-21 10:48] VITALS: BP 167/98; PULSE 68; RESP 20; TEMP 37.1; O2SAT 97
[2022-05-21 10:59] LABS: Glucose, Whole Blood 299 mg/dL (60-115)
[2022-05-21] MEDS: Lactated Ringers 1,000 ML 100 ML IVCONT (11:24)
[2022-05-21] MEDS: Insulin Lispro 100 UNIT/ML 3 ML VIAL 6 UNIT SUBCUT (11:42)
[2022-05-21 12:19] LABS: Glucose, Whole Blood 267 mg/dL (60-115)
--- NOTE | 2022-05-21 12:37 | P.OP_ITS ---
Operative Note Operative Note Date of Service: 05/21/22 Narrative: Procedure: Esophagogastroduodenoscopy Endoscopist: Ariane Calabrese MD Indication: Dysphagia Anesthesia Provider: Dr Betty Hawthorne Anesthesia Type: MAC ?? EGD Procedure:?? The procedure, indications, preparation and potential complications were reviewed with the patient, who indicated understanding and gave written informed consent to proceed. A physical exam was performed. The endoscope was introduced through the mouth, and advanced to the second part of duodenum. The mucosa was carefully examined on slow withdrawal of the endoscope. The patient tolerated the procedure well. There were no immediate complications.? ? EGD Findings:? * Esophagus:? Normal mucosa noted in the entire esophagus. The Z line was at 35 cm. There was a non-obstructing Schatzki's ring right above GE junction. * Stomach:? Normal mucosa was noted in the stomach. Random gastric biopsies were taken to rule out H Pylori infection. * Duodenum:?Normal mucosa was noted in the whole of the examined duodenum. Biopsies were taken from duodenal bulb and second portion of the duodenum to rule out celiac sprue. Additional intervention:?A soft-tip Savary wire was passed through the scope and advanced to the antrum. The gastroscope was then backed out and Savary-Susana bougie was advanced over the guidewire with serial dilation from 14 mm to 16 mm. On relook a tear was noted at the Schatzki's ring and another tear with scant heme was seen at the cricopharyngeus indicating successful dilation of both. ? EGD Impressions:? * Cricopharyngeal stenosis (dilation) * Schatzki's ring (dilation) * Normal stomach (biopsy) * Normal duodenum (biopsy) ?? Recommendations:?? * Follow biopsy results. Our office will call or send a letter with results within 7-10 days. * Repeat EGD in 8-10 weeks to complete dilation up to 20 mm for complete relief of dysphagia. * Avoid NSAIDs. Above has been reviewed with the patient. Relevant educational hand outs were provided at discharge. ?
[2022-05-21 13:20] VITALS: BP 135/67; PULSE 68; RESP 16; TEMP 36.2; O2SAT 99
--- NOTE | 2022-05-21 13:26 | HO.POSTANES ---
Post Anesthesia Evaluation Post Anesthesia Evaluation Vital Signs: Vital Signs Temp Pulse Resp BP Pulse Ox O2 Del Method 05/21/22 10:48 98.7 F 68 20 167/98 H 97 Room Air Anesthesia: Monitored Mental Status: Awake Pain Control: Satisfactory Nausea/Vomiting: None Hydration: Adequate Anesthesia-Related Issues: No Anes. Related Issues
[2022-05-21 13:35] VITALS: BP 149/83; PULSE 63; RESP 16; O2SAT 98
[2022-05-21 13:49] VITALS: BP 167/93; PULSE 56; RESP 18; TEMP 36.1; O2SAT 99
[2022-05-21] MEDS: Mag&Al/Sim/Diphenhyd/Lidocaine 10 ML ORAL.SUSP PO (13:51)
== END 2022-05-21 15:18 | disposition home or self-care (01) ==
PROVIDERS: PCP Internal Medicine; Visit Provider Internal Medicine
PROC: (CPT 43248; principal; 2022-05-21 13:50)
DX: R13.10 Dysphagia, unspecified (principal); R14.0 Abdominal distension (gaseous); R63.0 Anorexia; Z68.37 Body mass index [BMI] 37.0-37.9, adult; K22.2 Esophageal obstruction; K21.9 Gastro-esophageal reflux disease without esophagitis; I25.10 Atherosclerotic heart disease of native coronary artery without angina pectoris; E78.00 Pure hypercholesterolemia, unspecified; Z95.5 Presence of coronary angioplasty implant and graft; I10 Essential (primary) hypertension; I25.2 Old myocardial infarction; E89.0 Postprocedural hypothyroidism; E11.9 Type 2 diabetes mellitus without complications; Z79.84 Long term (current) use of oral hypoglycemic drugs; Z79.82 Long term (current) use of aspirin; Z79.899 Other long term (current) drug therapy; Z88.0 Allergy status to penicillin; Z90.5 Acquired absence of kidney; Z90.49 Acquired absence of other specified parts of digestive tract; Z86.16 Personal history of COVID-19
CPT/HCPCS: 43248; 43239; 82947; 88305; 88342; C1769

== ENCOUNTER → 2022-06-12 09:47 | Outpatient (BNVA) | payer OTHER, SELFPAY | PROVIDERS: PCP Internal Medicine; Visit Provider Internal Medicine | DX: K22.2 Esophageal obstruction (principal); R13.10 Dysphagia, unspecified | CPT/HCPCS: 99212 ==

== ENCOUNTER 2022-09-02 09:02 | Outpatient (REF) | payer OTHER, SELFPAY ==
--- NOTE | ~2022-09-02 | MM_ITS ---
EXAMINATION: BONE DENSITOMETRY CLINICAL INDICATION: Asymptomatic menopausal state. COMPARISON: None (current study represents initial baseline exam). TECHNIQUE: Using a [employer]Apps DXA System (software version: 13.1) manufactured by [employer], dual-energy x-ray absorptiometry was performed of the lumbar spine and left hip. The images are of good technical quality. Summary results are attached. FINDINGS: AP SPINE L1-L4 (excluding L2 and L3): The data of L1-L4 has been changed to exclude the L2 and L3 vertebral bodies, because degenerative changes at these levels may cause overestimation of lumbar spine density. BMD 1.504 g/cm2, Z-score 4.0, T-score 2.8, normal. LEFT FEMUR, NECK: BMD 0.994 g/cm2, Z-score 1.4, T-score -0.3, normal. LEFT FEMUR, TOTAL: BMD 1.156 g/cm2, Z-score 2.7, T-score 1.2, normal. IDENTIFIED RISK FACTORS: Menopause. HISTORY OF FRACTURE: None listed. MEDICATIONS: Multivitamin. MM/XR DEXA axial skeleton IMPRESSION: 1. DIAGNOSIS: Normal bone density based on the lowest T-score value of -0.3 in the femoral neck applying World Health Organization criteria. 2. 10-YEAR FRACTURE RISK PREDICTION, FRAX: According to the guidelines, FRAX calculation should only be performed on patients in the osteopenia bone density category. Therefore, FRAX was not performed on this patient. 3. Treatment Recommendations: NOF guidelines recommend consideration for treatment in postmenopausal women and men age 50 and older presenting with the following: -A hip or vertebral (clinical or morphometric) fracture. -T-score less than or equal to -2.5 at the femoral neck or spine after appropriate evaluation to exclude secondary causes. -Low bone mass at the hip or spine and a 10-year fracture probability by FRAX of greater than or equal to 3% for hip fracture or greater than or equal to 20% for major osteoporotic fracture based on the [place] adapted WHO algorithm. 4. Other Recommendations: All treatment decisions require clinical judgment and consideration of individual patient factors, including patient preferences, comorbidities, previous drug use, risk factors not captured in the FRAX model (e.g. frailty, falls, vitamin D deficiency, increased bone turnover, interval significant decline in bone density) and possible under or overestimation of fracture risk by FRAX. FUTURE SCAN RECOMMENDATION: People with diagnosed cases of osteoporosis or at high risk for fracture should have regular bone mineral density tests. For patients eligible for Medicare, routine testing is allowed once every 2 years. The testing frequency can be increased to one year for patients who have rapidly progressing disease, those who are receiving or discontinuing medical therapy to restore bone mass, or have additional risk factors.
--- NOTE | ~2022-09-02 | MM_ITS ---
EXAMINATION: MM SCREENING DIGITAL BREAST TOMOSYNTHESIS, BILATERAL CLINICAL INFORMATION: Screening. Asymptomatic. The lifetime risk of breast cancer based on the Tyrer-Cuzick Model is under 3%. COMPARISON: Outside mammography: 09/17/2021, 09/14/2020, 03/03/2019 ([facility]). TECHNIQUE: Digital breast tomosynthesis is performed in both the craniocaudal and mediolateral oblique views along with computer-aided detection (CAD). Synthesized 2D images are generated from the tomosynthesis. Additional bilateral CC and left MLO views are provided. FINDINGS: There are scattered areas of fibroglandular density (ACR BI-RADS breast composition Category b). There are no significant masses, abnormal calcifications, or other abnormalities. There is fine fibronodular parenchymal pattern similar to outside exams. No developing density or architectural abnormality. There are scattered bilateral benign round and vascular calcifications. Right breast has some faint dermal lesion(s) overlying the inferior medial breast with fine benign dermal calcifications versus artifact from dermal ointment or powder. The axilla are unremarkable. There are no significant changes. MM/MM tomosynthesis screening BI IMPRESSION: No mammographic evidence of malignancy. ASSESSMENT: BI-RADS 2: Benign RECOMMENDATION: Routine annual mammography screening. This patient's information was entered into a reminder system with a target due date for their next mammogram.
== END 2022-09-02 09:03 | disposition home or self-care (01) ==
LOC: HO.MAMMO 09:02
PROVIDERS: PCP Internal Medicine; Visit Provider Nurse Practitioner Family
DX: Z12.31 Encounter for screening mammogram for malignant neoplasm of breast (principal); Z13.820 Encounter for screening for osteoporosis; Z78.0 Asymptomatic menopausal state
CPT/HCPCS: 77063; 77067; 77080

== ENCOUNTER 2022-10-08 12:23 | Outpatient (AMB) | payer OTHER, SELFPAY ==
--- NOTE | 2022-10-08 12:51 | A.OFFVIS_ITS ---
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 Intake Note: NPV w/ EKG Type Cutter Required: No Accompanied by: Son Allergies penicillin G [Penicillin G] Allergy (Mild, Verified 07/16/22 11:32) RASH Medication List - Last Reconciled 10/08/22 by Karan Mora MD albuterol sulfate 90 mcg/actuation 90 mcg inhalation Q4H PRN amlodipine 5 mg PO DAILY 90 days aspirin 81 mg PO DAILY atorvastatin 40 mg PO DAILY blood sugar diagnostic (FreeStyle Test strips) As directed blood sugar diagnostic As directed gabapentin 100 mg PO BEDTIME hydroxyzine HCl 25 mg PO BID lancets (FreeStyle Lancets) As directed levothyroxine 100 mcg PO DAILY 90 days lidocaine 4% (Aspercreme (lidocaine)) 1 patch topical DAILY PRN losartan 100 mg PO DAILY 90 days Magic Mouthwash Diphen/Lido/Antacid 1:1:1 10 mL PO TID 3 days metformin ER 1,000 mg PO BID nitroglycerin 1 tab sublingual NEEDED pantoprazole 40 mg PO DAILY 90 days potassium chloride ER (Klor-Con M) 20 mEq PO DAILY propranolol 20 mg PO TID sertraline 100 mg PO DAILY HPI HPI Comments History of Present Illness Details Anna is here for consultation regarding coronary disease. It seems that she might have been seen at [facility] in the past. However, not seeing then these days. Patient also needs to go for EGD/dilatation and that apparently needs cardiology clearance. She states that she does get a lot of heartburn which can happen any time, with and without exertion. Not clear that is all from acid reflux or there is any cardiac component to this. She also gets frequent palpitations. Minimal activity at baseline and she is walking with a walker. Available records reviewed. She apparently underwent LAD/diagonal stenting 2010. This was done [place]. Echocardiogram from 2019 at [facility] with an EF of 60-65%. No wall motion abnormalities and otherwise unremarkable. Perfusion imaging at that time was also unremarkable. [facility] Medical History (Updated 10/08/22 @ 13:18 by Karan Mora MD) CAD (coronary artery disease) Cancer COVID-19 vaccine administered Diabetes mellitus Elevated cholesterol HTN (hypertension) with goal to be determined Incisional hernia, without obstruction or gangrene Myocardial infarction Personal history of COVID-19 Thyroid disease Surgical History Diverticula, colon History of carpal tunnel surgery of right wrist History of colon resection History of esophagogastroduodenoscopy (EGD) History of excision of mass History of heart artery stent History of hysterectomy for benign disease History of incisional hernia repair History of knee surgery History of umbilical hernia repair Hx of cataract extraction Hx of cholecystectomy Hx of partial nephrectomy Hx of thyroidectomy Family History Mother No problems noted. Father No problems noted. Social History Household Members: Spouse Housing: House Are you a primary managed care liaison to a significant other at home: No Do you presently have visiting nurse or other home services: No Patient Tobacco Use Status: Never used Tobacco e-Cigarette/Vaping Use: Never Used Second Hand Smoke Exposure: No service: No Current occupational status: disabled Cognitive needs: Yes Hearing needs: No Vision needs: Yes Review of Systems Const Denies weakness Eyes Denies loss of vision ENT Denies dizziness Card Denies chest pain, Denies chest pain with activity, Denies syncope, Denies rapid heart rate, Denies pedal edema, Denies edema, Denies leg edema, Denies lightheadedness, Denies palpitations, Denies dyspnea, Denies dyspnea on exertion and Denies orthopnea Resp Denies cough, Denies dyspnea, Denies dyspnea on exertion and Denies wheezing GI Denies hematochezia and Denies change in stool character Denies hematuria, Denies urinary frequency and Denies dysuria Musc Denies abnormal gait, Denies muscle cramps, Denies muscle weakness, Denies numbness, Denies radiating pain into limb and Denies tingling Skin/Breast Denies nail changes and Denies rash Neuro Denies Abnormal speech present, Denies abnormal gait, Denies dizziness, Denies syncope, Denies loss of vision, Denies memory loss, Denies numbness, Denies tingling and Denies weakness Psych Denies depression and Denies memory loss Endo Denies palpitations Aller/Immun Denies wheezing Physical Exam Vital Signs: Last Vital Signs Pulse 74 10/08/22 12:53 BP 160/86 H 10/08/22 12:53 BMI result Body Mass Index 36.6 Const General: comfortable and no acute distress Orientation/consciousness: patient oriented x3 HEENT Other: Unremarkable Head: Yes normal to inspection Neck Neck: Yes normal visual inspection Chest Chest palpation & inspection: normal inspection of the chest Resp Auscultation: clear to auscultation bilaterally Cardio Palpation: normal PMI Heart sounds: S1 normal heart sound present, S2 normal heart sound present, no gallops, no murmurs and no rubs GI Palpation (GI): Soft to palpation Back/Spine/Pelvis Other: unremarkable Skin General skin exam: no rashes or lesions noted Neuro General: patient oriented x3 Speech: No Abnormal speech present Extrem General: Yes normal to inspection Psych Mental Status: mental status grossly normal Office Procedures EKG Details: EKG with sinus rhythm at 74/Min; nonspecific ST-T changes; normal NE; corrected QT slightly prolonged, but could just be an overestimate. [id number], Complete Assessment & Plan Assessment & Plan (1) Preoperative cardiovascular examination: Code(s): Z01.810 - Encounter for preprocedural cardiovascular examination (2) CAD (coronary artery disease): Comment: w/cardiac stent 2010 Code(s): I25.10 - Atherosclerotic heart disease of [place] coronary artery without angina pectoris (3) Heart palpitations: Code(s): R00.2 - Palpitations Plan 77-year-old female, multiple comorbidities, prior LAD/diagonal stent, frequent heartburn, palpitations. Last workup from 2019 unremarkable. We will get comprehensive cardiac workup including echocardiogram, stress test and Holter. Walking with a walker and hence will need to Lexiscan. Follow-up after review of the above. Orders: Orders CA lexiscan stress w olegario Today I20.9 - Angina pectoris, unspecified, Z01.810 - Encounter for preprocedural cardiovascular examination CA echo transthoracic complete Today I25.10 - Atherosclerotic heart disease of [place] coronary artery without angina pectoris, Z01.810 - Encounter for preprocedural cardiovascular examination NM cardiolite stress test Today R07.2 - Precordial pain, Z01.810 - Encounter for preprocedural cardiovascular examination ECG 7 day holter monitor Today R00.2 - Palpitations Coding Level of Care Code New Pt Level 4 (26595) Diagnoses Preoperative cardiovascular examination Z01.810 CAD (coronary artery disease) I25.10 Heart palpitations R00.2 CPT Codes EKG - CPT: 43778-[id number], Complete ([id number])
[2022-10-08 12:53] VITALS: BP 160/86; PULSE 74; BMI 36.6
== END 2022-10-08 13:24 | disposition home or self-care (01) ==
PROVIDERS: Visit Provider Internal Medicine
DX: Z01.810 Encounter for preprocedural cardiovascular examination (principal); I25.10 Atherosclerotic heart disease of native coronary artery without angina pectoris; R00.2 Palpitations
CPT/HCPCS: 93010; 99204

== ENCOUNTER → 2022-10-08 12:23 | Outpatient (BNVA) | payer OTHER, SELFPAY | PROVIDERS: Visit Provider Internal Medicine | DX: Z01.810 Encounter for preprocedural cardiovascular examination (principal); I25.10 Atherosclerotic heart disease of native coronary artery without angina pectoris; R00.2 Palpitations | CPT/HCPCS: 93005; 99202 ==

== ENCOUNTER → 2022-11-20 09:09 | Outpatient (REF) | payer OTHER, SELFPAY ==
--- NOTE | ~2022-11-20 | NM_ITS ---
Myocardial perfusion study Indication: Precordial chest pain to evaluate for myocardial ischemia Technique: The patient was brought in for a Lexiscan perfusion study on 11/20/2022. Patient performed low-level exercise and was injected 0.4 mg of Lexiscan intravenously. Within a minute of injection, 25 mCi of sestamibi was given intravenously. Images were obtained using the SPECT gamma camera interlaced with the gating device. Images were obtained in supine position. Resting perfusion study was performed on 11/24/2022. Patient was administered 25 mCi of sestamibi intravenously at rest. Images were then obtained in supine position. Images obtained with and without CT attenuation. Total DLP 138 mGy-cm. Images were processed with the software and compared side to side in short axis, horizontal long axis and vertical long axis views. Findings: The stress perfusion study showed non attenuated images show mildly reduced uptake in the inferoapical wall of the LV myocardium. Remainder of the LV myocardium is normally perfused. Attenuation corrected images show minimally reduced uptake in the apex of the LV myocardium. The gated study shows normal LV systolic function with calculated LVEF of 72%. LV cavity is normal in size. The gated study shows normal systolic wall thickening and contraction of segments. Resting study shows no change in perfusion pattern compared to stress perfusion study. Gating at rest reveals normal systolic wall motion with ejection fraction at 70%. The findings are consistent with normal myocardial perfusion. NM/NM cardiolite stress test Impression: 1. Myocardial perfusion imaging study shows normal myocardial perfusion 2. Gated LVEF is 70% 3. Transient ischemic dilatation not present EKG is nondiagnostic for ischemia
--- NOTE | 2022-11-20 09:11 | HM_ITS ---
Conclusion: 1. Patient was monitored for total period of 4 days 2. Baseline was normal sinus with average heart of 65 beats per minute 3. Frequent sinus bradycardia noted with 35% time heart rate below 60 beats per minute with no significant pauses 4. Occasional PVCs noted with total burden of 0.4% 5. Frequent PACs noted with total burden of 1.9% with multiple short runs of SVT, longest lasting 3 beats 6. Patient marked the counter 1 time without reporting any symptoms correlating with sinus rhythm MTDD
--- NOTE | 2022-11-20 09:11 | CA_ITS ---
Acquisition Time: 2022-11-20 10:24:06 Total Exercise Time: 00:02:00 Test Indications: PREOP Medications: SEE H Protocol: LEXISCAN Max HR: 082 BPM 58% of Pred: 141 BPM Max BP: 178/068 mmHG Max Work Load: 1.0 METS Pharmacological stress test with Lexiscan injection while sittign and kicking her legs, without anginal sympotms, without arrhythmias, with normotensive response to injection, with nondiagnostic EKGs. Nuclear images pending. Test reviewed with Dr. Trujillo Referred By: Karan Mora Overread By: Abril Alvarez
--- NOTE | 2022-11-20 09:11 | CA_ITS ---
Transthoracic Echocardiogram Patient (Last, First, Middle): Anna Bojorquez, Gender: Female Date of : 1945 Age: 77 Procedure Date: 11/20/2022 Procedure Type: Transthoracic Echocardiogram Location: OP Height: 157.48 cm Weight: 89.81 kg BSA: 1.90 m2 Heart Rate: bpm BP: 118 / 60 mmHg Inspector Clip On Sunglasses: Referring MD: Karan Mora MD Rent And Housing Investigator: Yogi Trujillo MD Symptoms: I25.10 - Atherosclerotic heart disease of [place] coronary artery without... Study Quality: Fair ECG Rhythm: Sinus Conclusions: - 1. Normal LV systolic function with impaired relaxation abnormality. 2. Normal cardiac valvular dopplers 3. Normal RVSP 4. No pericardial effusion. Findings Left Ventricle Normal left ventricular size, thickness, and systolic function. The visually estimated ejection fraction is between 60-65%. Spectral Doppler is indicative of an impaired relaxation filling pattern. E/E prime ratio is between 8 and 15 consistent with indeterminate filling pressures. Right Ventricle Normal right ventricular cavity size and systolic function. Atria The left atrium is mildly dilated. There is lipomatous hypertrophy of the interatrial septum. There is no evidence of interatrial shunt. The right atrium is normal in size. Aortic Valve Normal aortic valve structure and function. There is no aortic valve stenosis. There is no aortic valve regurgitation. Mitral Valve Normal mitral valve structure and function. There is trace mitral valve regurgitation. There is no mitral valve stenosis. Pulmonic Valve The pulmonic valve is likely normal. There is trace pulmonic valve regurgitation. Tricuspid Valve Normal tricuspid valve structure. There is trace tricuspid valve regurgitation. The right ventricular systolic pressure is normal. The right ventricular systolic pressure is 17 mmHg. Normal right atrial pressure. There is no evidence of pulmonary hypertension. Great Vessels All visible segments of the aorta are normal in size. The pulmonary artery was not well visualized. Venous The inferior vena cava is normal in size and collapses greater than 50% with inspiration. Pericardium/Pleural There is no evidence of pericardial effusion. Prior Study Comparison No prior study available for comparison. Measurements 2D Linear Measurements IVSd: 1.28 0.6-0.9/0.6-1.0 cm LVIDd: 4.45 3.9-5.3/4.2-5.9 cm LVIDd Index: 2.34 2.4-3.2/2.2-3.1 cm/m2 LVIDs: 2.80 2.0-3.6 cm LVPWd: 1.23 0.7-1.1 cm Ao Root: 3.20 2.1-3.5 cm LA Diam: 4.30 2.7-3.8/3.0-4.0 cm LAIDs Index: 2.26 1.5-2.3 cm/m2 LV Mass: 258.99 67-162/88-224 g LV Mass Index: 136.31 43-95/49-115 g/m2 LVOT Diam: 2.00 3.0+(-)1.3 cm Mitral Valve MV Pk E: 0.59 MV PK A: 0.96 MV Decel Time: 264.00 E/A: 0.60 E'Lateral: 6.09 E'Medial: 4.03 E/E' Med: 14.60 E/E' Lat: 9.60 PHT: 77.00 MVA PHT: 2.86 Decel [place]: 2.22 Aortic Valve AoV Pk Paramjit: 1.48 AoV Mn Paramjit: 0.88 AoV VTI: 0.41 AoV Pk Grad: 9.00 Aov Mn Grad: 4.00 DIONISIO Cont.VTI: 2.26 LVOT LVOT Pk Paramjit: 1.03 LVOT Mn Paramjit: 0.69 LVOT VTI: 0.30 LVOT Pk Grad: 4.00 LVOT Mn Grad: 2.00 LVOT Diam: 2.00 LVOT Area: 3.14 Diastolic Function MV Pk E: 0.59 MV Pk A: 0.96 E/A: 0.60 E'Medial: 4.03 E/E' Med: 14.60 E' Laterial: 6.09 E/E' Lat: 9.60 Right Ventricle TAPSE (mm): 27.00 TVS' Paramjit: 10.00 Tricuspid Valve TR Pk Paramjit: 1.87 TR Pk Grad: 14.00 RA Press: 3.00 RVSP: 17.00 Great Vessels Aorta Ao Root-2D: 3.20 2.0-3.7 cm Ao Asc: 3.00 2.1-3.4 cm Pulmonary Valve PV Pk Paramjit: 0.88 Peak PV Grad: 3.00 Updated in Other Vendor System with Status of Final Yogi Trujillo MD electronically signed on 11/21/2022 1:22:24 PM with status of Final
== END ==
LOC: HO.CARD 09:09
PROVIDERS: PCP Internal Medicine; Visit Provider Internal Medicine
DX: Z01.810 Encounter for preprocedural cardiovascular examination (principal); R07.2 Precordial pain; R00.2 Palpitations; I25.119 Atherosclerotic heart disease of native coronary artery with unspecified angina pectoris
CPT/HCPCS: 78452; 93017; 93242; 93306; A9500; J0280; J2785

== ENCOUNTER → 2022-11-20 09:11 | Outpatient (BNV) | payer OTHER, SELFPAY | PROVIDERS: PCP Internal Medicine; Visit Provider Nurse Practitioner | DX: R00.1 Bradycardia, unspecified (principal) | CPT/HCPCS: 78452; 93016; 93018; 93244; 93306 ==

== ENCOUNTER 2022-11-27 09:42 | Outpatient (AMB) | payer OTHER, SELFPAY ==
[2022-11-27 09:43] VITALS: BP 154/84; PULSE 48; BMI 37.2
--- NOTE | 2022-11-27 09:43 | MHC.OFFVIS ---
Intake Vital Signs 11/27/22 09:43 Height 5 ft Weight 190 lb 7.67 oz BMI 37.2 BP 154/84 H Blood Pressure Location Lt brachial Position Sitting Pulse 48 L Pulse Source Pulse Oximeter Intake Visit Reasons: DM2 Intake Note: New patient present for Diabetes Mellitus. Previously managed by PCP. Last Diabetic Eye exam: 01/2022 Last Podiatry Visit: None Random Glucose: 198 mg/dl HgA1C: 10.7% 07/16/2022 Residential Treatment Counselor Required: Yes Residential Treatment Counselor Language: Livestock Trader Name: Alicia medical staff Information Interpreted: non-clinical & clinical Accompanied by: Other Relationship Allergies penicillin G [Penicillin G] Allergy (Mild, Verified 11/27/22 09:50) RASH Medication List - Last Reconciled 11/27/22 by Ramon George MD albuterol sulfate 90 mcg/actuation 90 mcg inhalation Q4H PRN amlodipine 5 mg PO DAILY 90 days aspirin 81 mg PO DAILY 90 days atorvastatin 40 mg PO DAILY blood sugar diagnostic (FreeStyle Test strips) As directed blood sugar diagnostic As directed gabapentin 100 mg PO BEDTIME hydroxyzine HCl 25 mg PO BID lancets (FreeStyle Lancets) As directed levothyroxine 100 mcg PO DAILY 90 days lidocaine 4% (Aspercreme (lidocaine)) 1 patch topical DAILY PRN losartan 100 mg PO DAILY 90 days Magic Mouthwash Diphen/Lido/Antacid 1:1:1 10 mL PO TID 3 days metformin ER 1,000 mg PO BID nitroglycerin 1 tab sublingual NEEDED pantoprazole 40 mg PO DAILY 90 days potassium chloride ER (Klor-Con M) 20 mEq PO DAILY propranolol 20 mg PO TID sertraline 100 mg PO DAILY HPI HPI Comments History of Present Illness Details 77 YO M/F who is seen in consultation for T2DM at the request of PCP. Initially diagnosed with T2DM in 4 yrs . ?saw endo at [facility] Was initially started on treatment with metformin. Current regimen metformin 1000 mg BID . Unfortunately, patient did not bring log book glucometer to visit Most recent A1C [], [down] from prior [] on []. Family history of T2DM in sister , brother has Type 2 DM . Has eyes checked yearly, last eye exam last yr. Has appt this mo , denies retinopathy. Denies neuropathy, Not sees podiatry. Denies nephropathy, on ABRAHAN/ARB. UAC [] as measured on []. Has HLD, on statin atorvastatin 40 mg . Last LDL [] as measured on []. Denies CAD. Not Had diabetes education. [facility] Medical History (Updated 10/08/22 @ 13:18 by Karan Mora MD) COVID-19 vaccine administered Personal history of COVID-19 Cancer Elevated cholesterol Myocardial infarction CAD (coronary artery disease) Thyroid disease Incisional hernia, without obstruction or gangrene Diabetes mellitus HTN (hypertension) with goal to be determined Surgical History History of esophagogastroduodenoscopy (EGD) History of incisional hernia repair Hx of cholecystectomy Hx of partial nephrectomy Hx of thyroidectomy History of carpal tunnel surgery of right wrist History of colon resection Hx of cataract extraction Diverticula, colon History of umbilical hernia repair History of heart artery stent History of excision of mass History of knee surgery History of hysterectomy for benign disease Family History Mother No problems noted. Father No problems noted. Social History Household Members: Spouse Housing: House Are you a primary child care supervisor to a significant other at home: No Do you presently have visiting nurse or other home services: No Patient Tobacco Use Status: Never used Tobacco e-Cigarette/Vaping Use: Never Used Second Hand Smoke Exposure: No service: No Current occupational status: disabled Cognitive needs: Yes Hearing needs: No Vision needs: Yes Physical Exam Vital Signs: Last Vital Signs Pulse 48 L 11/27/22 09:43 BP 154/84 H 11/27/22 09:43 BMI result Body Mass Index 37.2 Absence of Cushingoid features. Absence of acromegalic features. Neck exam reveals healed scar status post thyroidectomy. No carotid bruits present. Lungs CTA. Heart S1 S2, Reg R/R. No M/R/ G. Skin exam reveals absence of vitiligo or acanthosis nigricans. Abdominal exam reveals Soft NT/ND with NA BS. No organomegaly present. Neck Other: . Extrem Other: Visual exam of foot performed. No ulcerations or open lesions. No onchomycosis, no callouses.Pulses 2 + distally Sensation intact to monofilament exam. Vibratory sensation sensed is intact with 128 Hz tuning fork Results Reviewed Results Reviewed: 11/27/22 09:54 Glucose, Whole Blood Routine Laboratory Last Values Glucose (Clinic) 198 mg/dL (60-115) H 11/27/22 09:54 Assessment & Plan Assessment & Plan (1) Diabetes mellitus: Comment: NIDDM Code(s): E11.9 - Type 2 diabetes mellitus without complications Plan: This 77-year-old female with history of type 2 diabetes being treated with metformin with poor glycemic control and known macrovascular complications namely CAD. Plan is to have the patient check her point cares pre and post meals and to bring glucometer with her follow-up visit. Will make an appointment for drier feeder and retail asset protection specialist. Will check basic metabolic panel, TSH, free T4, lipid profile and microalbumin to creatinine ratio. If renal function is sufficient, could consider initiating a G LP 1 if inadequate glycemic control. Explained the relationship of poor glycemic control to development and progression complication Orders: Referrals Diabetes Education Referral E11.9 - Type 2 diabetes mellitus without complications Nutrition/Dietitian Referral E11.9 - Type 2 diabetes mellitus without complications Coding Level of Care Code New Pt Level 5 (56932) Diagnoses Diabetes mellitus E11.9 Time Spent (min) 60 Comment A total of 60 minutes was spent reviewing chart, seeing patient and dictating
[2022-11-27 09:58] LABS: Glucose, Whole Blood 198 mg/dL (60-115)
== END 2022-11-27 10:46 | disposition home or self-care (01) ==
PROVIDERS: PCP Internal Medicine; Visit Provider Internal Medicine Endocrinology, Diabetes & Metabolism
DX: E11.65 Type 2 diabetes mellitus with hyperglycemia (principal)
CPT/HCPCS: 99205

== ENCOUNTER → 2022-11-27 09:42 | Outpatient (BNVA) | payer OTHER, SELFPAY | PROVIDERS: Visit Provider Internal Medicine Endocrinology, Diabetes & Metabolism | DX: E11.9 Type 2 diabetes mellitus without complications (principal) | CPT/HCPCS: 82947 ==

== ENCOUNTER 2022-11-27 11:12 | Outpatient (REF) | payer OTHER, SELFPAY ==
[2022-11-27 14:44] LABS: Free T4 (Free Thyroxine) 1.08 ng/dL (0.71-1.85); Thyroid Stimulating Hormone 1.95 uIU/mL (0.32-4.0)
[2022-11-27 14:47] LABS: Anion Gap 16 (12-20)
[2022-11-27 14:52] LABS: Blood Urea Nitrogen 7 mg/dL (9-16); Calcium 8.4 mg/dL (8.4-10.2); Carbon Dioxide 27 mmol/L (22-29); Chloride 101 mmol/L (96-108); Cholesterol 162 mg/dL (<200); Estimated Glomerular Filt Rate 57; Glucose Random 213 mg/dL (60-115); HDL Cholesterol 64 mg/dL (>40); LDL Cholesterol Calculated 75 mg/dL (<100); Potassium 3.8 mmol/L (3.3-5.1); Sodium 140 mmol/L (135-145); Triglycerides 117 mg/dL (<150)
[2022-11-27 15:19] LABS: Creatinine Urine 136.17 mg/dL; Microalbum/Creatinine Ratio Ur 13.2 ug/mg cr (<30)
== END 2022-11-27 11:13 | disposition home or self-care (01) ==
LOC: HO.10HDL 11:12
PROVIDERS: Visit Provider Internal Medicine Endocrinology, Diabetes & Metabolism
DX: E11.9 Type 2 diabetes mellitus without complications (principal)
CPT/HCPCS: 36415; 80048; 80061; 82043; 82570; 84439; 84443

== ENCOUNTER 2022-12-01 09:02 | Outpatient (AMB) | payer OTHER, SELFPAY ==
[2022-12-01 09:04] VITALS: BP 140/82; PULSE 66; BMI 37.1
--- NOTE | 2022-12-01 09:04 | MHC.OFFVIS ---
Intake Vital Signs 12/01/22 09:04 Height 5 ft Weight 190 lb 0.615 oz BMI 37.1 BP 140/82 H Blood Pressure Location Lt brachial Position Sitting Pulse 66 Pulse Source Pulse Oximeter Intake Visit Reasons: s/p stress/ echo HS Intake Note: s/b stress/echo Sheet Metal Layout Worker Required: Yes Sheet Metal Layout Worker Name: kellie herbert [id number] Accompanied by: furniture upholsterer apprentice Allergies penicillin G [Penicillin G] Allergy (Mild, Verified 12/01/22 09:11) RASH Medication List - Last Reconciled 12/01/22 by Nicole Apple SKILLED TRADES TEACHER-C albuterol sulfate 90 mcg/actuation 90 mcg inhalation Q4H PRN amlodipine 5 mg PO DAILY 90 days aspirin 81 mg PO DAILY 90 days atorvastatin 40 mg PO DAILY blood sugar diagnostic (FreeStyle Test strips) As directed blood sugar diagnostic As directed gabapentin 100 mg PO BEDTIME hydroxyzine HCl 25 mg PO BID lancets (FreeStyle Lancets) As directed levothyroxine 100 mcg PO DAILY 90 days lidocaine 4% (Aspercreme (lidocaine)) 1 patch topical DAILY PRN losartan 100 mg PO DAILY 90 days Magic Mouthwash Diphen/Lido/Antacid 1:1:1 10 mL PO TID 3 days metformin ER 1,000 mg PO BID nitroglycerin 1 tab sublingual NEEDED pantoprazole 40 mg PO DAILY 90 days potassium chloride ER (Klor-Con M) 20 mEq PO DAILY propranolol 20 mg PO DAILY sertraline 100 mg PO DAILY HPI s/p stress/ echo HS HPI Details Anna is a 77-year-old female past medical history of hypertension, hyperlipidemia, diabetes, obesity, CAD with LAD and diagonal stent who recently transferred to our office and has undergone updated cardiac testing including echocardiogram, stress test and Holter monitor. She now presents for follow-up. Today she reports she has been feeling generally well. She has no complaints of chest discomfort with activity. She will notice are random pressure in her chest at times, mostly at rest. She will feel occasional heart palpitations lasting seconds then resolving. No presyncope, syncope, falls. No concerning shortness of breath, PND, orthopnea or edema. She is active around the house, ambulates with a walker. She takes her meds as directed. Her block machine operator present. Certified fretted string instrument repairer used. [facility] Medical History COVID-19 vaccine administered Personal history of COVID-19 Cancer Elevated cholesterol Myocardial infarction CAD (coronary artery disease) Thyroid disease Incisional hernia, without obstruction or gangrene Diabetes mellitus HTN (hypertension) with goal to be determined Surgical History History of esophagogastroduodenoscopy (EGD) History of incisional hernia repair Hx of cholecystectomy Hx of partial nephrectomy Hx of thyroidectomy History of carpal tunnel surgery of right wrist History of colon resection Hx of cataract extraction Diverticula, colon History of umbilical hernia repair History of heart artery stent History of excision of mass History of knee surgery History of hysterectomy for benign disease Family History Mother No problems noted. Father No problems noted. Social History Household Members: Spouse Housing: House Are you a primary district manager primary care sales to a significant other at home: No Do you presently have visiting nurse or other home services: No Patient Tobacco Use Status: Never used Tobacco e-Cigarette/Vaping Use: Never Used Second Hand Smoke Exposure: No service: No Current occupational status: disabled Cognitive needs: Yes Hearing needs: No Vision needs: Yes Review of Systems Const All systems reviewed & are unremarkable except as noted in HPI and below ENT Denies dizziness Card Details: random pressure at times in chest - no pattern. Intermittent brief heart palpitations. Denies chest pain, Denies chest pain at rest, Denies chest pain with activity, Denies rapid heart rate, Denies pedal edema, Denies edema, Denies leg edema, Denies lightheadedness, Denies palpitations, Denies dyspnea, Denies dyspnea on exertion and Denies orthopnea Resp Denies cough, Denies dyspnea and Denies dyspnea on exertion GI Denies hematochezia and Denies change in stool character Musc Denies abnormal gait, Denies limited range of motion, Denies muscle cramps, Denies muscle weakness, Denies numbness, Denies radiating pain into limb, Denies stiffness and Denies tingling Neuro Denies abnormal gait, Denies dizziness, Denies numbness and Denies tingling Endo Denies palpitations Physical Exam Vital Signs: Last Vital Signs Pulse 66 12/01/22 09:04 BP 140/82 H 12/01/22 09:04 BMI result Body Mass Index 37.1 Const General: cooperative, healthy appearing, comfortable and no acute distress Orientation/consciousness: patient oriented x3 Neck Neck: Yes normal visual inspection Resp Effort & Inspection: normal respiratory effort Auscultation: clear to auscultation bilaterally, no crackles, no rales, no rhonchi and no wheezes Cardio Jugular venous distension: no JVD Rate: regular rate Rhythm: regular rhythm Heart sounds: S1 normal heart sound present, S2 normal heart sound present, no gallops, no murmurs and no rubs Neuro General: patient oriented x3 Extrem General: Yes normal to inspection Psych Appearance: grossly normal Mental Status: mental status grossly normal Speech and movement: Normal speech and movement present Assessment & Plan Assessment & Plan (1) Heart palpitations: Code(s): R00.2 - Palpitations Plan: Reported heart palpitations lasting seconds and resolving. No sustained rapid or irregular heartbeats. No presyncope, syncope, falls. Holter monitor done on 11/20/2022 for 4 days shows sinus rhythm with average heart rate 65, sinus Sammy 35% of the time, occasional PVCs 0.4% of time, frequent PACs 1.9% of time. She is likely feeling these extrasystoles. No finding of atrial fibrillation. Offered reassurance. She has been taking her propanolol only once daily. With her frequent sinus bradycardia will have her continue on that dose. Benefits of caffeine reduction reviewed with her. Cardiology follow-up in 6 months to re-evaluate palpitation and for any anginal symptoms. (2) CAD (coronary artery disease): Comment: w/cardiac stent 2010 Code(s): I25.10 - Atherosclerotic heart disease of [place] coronary artery without angina pectoris Plan: History of CAD with coronary stents to the LAD and diagonal 2010. Echocardiogram done 11/20/2022 showing EF 60-65%, impaired relaxation, normal valves, normal RVSP. Nuclear stress test done 11/24/2022 showed normal myocardial perfusion imaging. EKG done on last visit shows normal sinus rhythm with nonspecific T-wave abnormality. Today she reports she has been feeling well overall. She does get some pressure in her chest at times though nonexertional. No clear anginal sounding symptoms. Test results reviewed with her in detail. Will continue current management for stable CAD including aspirin indefinitely. He atorvastatin with ideal LDL goal less than 70. Continue propanolol, losartan, amlodipine. Blood pressure initially mildly elevated however on recheck blood pressure improved at 136/72. [place] blood pressure goal less than 130/85. If becomes elevated then her amlodipine can be increased. Continue good diabetic control with hemoglobin A1c goal less than 7. (3) Essential hypertension: Code(s): I10 - Essential (primary) hypertension Plan: As above. Continue current meds without change (4) Hyperlipidemia LDL goal <70: Code(s): E78.5 - Hyperlipidemia, unspecified Plan: Labs done 11/27/2022 shows LDL 75. She will continue on atorvastatin 40 mg daily. Coding Level of Care Code Est Pt Level 4 (74494) Diagnoses Heart palpitations R00.2 CAD (coronary artery disease) I25.10 Essential hypertension I10 Hyperlipidemia LDL goal <70 E78.5 Time Spent (min) 26
== END 2022-12-01 09:42 | disposition home or self-care (01) ==
PROVIDERS: PCP Internal Medicine; Visit Provider Nurse Practitioner Family
DX: R00.2 Palpitations (principal); I25.10 Atherosclerotic heart disease of native coronary artery without angina pectoris; I10 Essential (primary) hypertension; E78.5 Hyperlipidemia, unspecified
CPT/HCPCS: 99214

== ENCOUNTER → 2022-12-01 09:02 | Outpatient (BNVA) | payer OTHER, SELFPAY | PROVIDERS: PCP Internal Medicine; Visit Provider Nurse Practitioner Family | DX: I25.10 Atherosclerotic heart disease of native coronary artery without angina pectoris (principal); I10 Essential (primary) hypertension; R00.2 Palpitations; E78.5 Hyperlipidemia, unspecified | CPT/HCPCS: 99212 ==

== ENCOUNTER 2022-12-10 10:47 | Outpatient (AMB) | payer OTHER, SELFPAY ==
--- NOTE | 2022-12-10 10:49 | MHC.OFFVIS ---
Intake Vital Signs 12/10/22 10:51 Weight 192 lb BP 130/78 Blood Pressure Location Rt brachial Position Sitting Pulse 99 Pulse Source Pulse Oximeter Pulse Oximetry (%) 100 Oxygen Delivery Method Room Air Intake Visit Reasons: I-SEWER BUILDER - Other general symtoms and signs Intake Note: Pt presents today for memory changes, notable more c short term memory Allergies penicillin G [Penicillin G] Allergy (Mild, Verified 12/10/22 10:55) RASH HPI HPI Comments History of Present Illness Details 77y/o female comes for evaluation of memory issues A certified informatics coordinator Nella Maciel helped with todays appointment. SHe is accompanied by her TOOL AND DIE ENGINEER who helps with history About 2 years she started having short term memory issues which is worsening. She frequently repeat questions, forgets conversations, forgets appointments, forgets to eat etc.Misplaces things.she has trouble with time dates. she is able to take care of her personal hygiene like dressing and showering.she does not sleep well, has frequent arousals. Patients has dementia and he has lot of nighttime arousals which affects her sleep.She has depression and anxiety . ON LICENSE OF [facility] Medical History (Updated 12/10/22 @ 11:15 by Carolynn Young MD) Dementia COVID-19 vaccine administered Personal history of COVID-19 Cancer Elevated cholesterol Myocardial infarction CAD (coronary artery disease) Thyroid disease Incisional hernia, without obstruction or gangrene Diabetes mellitus HTN (hypertension) with goal to be determined Surgical History History of esophagogastroduodenoscopy (EGD) History of incisional hernia repair Hx of cholecystectomy Hx of partial nephrectomy Hx of thyroidectomy History of carpal tunnel surgery of right wrist History of colon resection Hx of cataract extraction Diverticula, colon History of umbilical hernia repair History of heart artery stent History of excision of mass History of knee surgery History of hysterectomy for benign disease Family History Mother No problems noted. Father No problems noted. Social History Household Members: Spouse Housing: House Are you a primary date night caregiver to a significant other at home: No Do you presently have visiting nurse or other home services: No Patient Tobacco Use Status: Never used Tobacco e-Cigarette/Vaping Use: Never Used Second Hand Smoke Exposure: No service: No Current occupational status: disabled Cognitive needs: Yes Hearing needs: No Vision needs: Yes Review of Systems Const Denies body aches, Denies chills, Denies fever(s) and Denies headache(s) Eyes Denies change in vision ENT Denies dizziness, Denies otalgia, Denies headache(s), Denies nasal discharge, Denies sinus pain and Denies sore throat Card Denies chest pain, Denies edema, Denies lightheadedness and Denies dyspnea Resp Denies cough and Denies dyspnea GI Denies constipation, Denies diarrhea, Denies nausea and Denies vomiting Denies dysuria Musc Reports as per HPI and Denies myalgias Skin/Breast Denies lesions and Denies rash Neuro Reports confusion, Denies dizziness and Denies headache(s) Psych Reports confusion Physical Exam Vital Signs: Last Vital Signs Pulse 99 12/10/22 10:51 BP 130/78 12/10/22 10:51 Pulse Ox 100 12/10/22 10:51 Oxygen Delivery Method Room Air 12/10/22 10:51 Const General: cooperative, healthy appearing, comfortable and confusion Nutritional Appearance: overweight Orientation/consciousness: oriented to person and confusion Eyes Pupils: Equal, round and reactive pupils present Neuro General: oriented to person, moves all extremities, no focal motor deficits and confusion Cranial nerves: Yes Facial sensation intact/muscles of mastication intact, Yes Equal, round and reactive pupils present, Yes Bilaterally intact EOM present, Yes Nystagmus not present, Yes Normal facial strength present and Yes Midline tongue present Cognition (Neuro): abnormal cognition Gait exam (Neuro): Antalgic gait present Motor exam (neuro): 5/5 motor strength present throughout and Normal motor muscle tone present throughout Orientation What is the (year) (season) (date) (day) (month)?: season Where are we (state) (county) (town or city) (hospital) (floor)?: state, town or city, hospital/clinic and floor Registration Name of 3 unrelated objects clearly and slowly, then ask patient to repeat all 3 of them. (1st repeat determines score. Make sure they can repeat all three): object 1, object 2 and object 3 Attention & Calculation (CHOOSE ONE) Spell WORLD backwards (DLROW): 4 letters Language Show patient a wristwatch & ask what it is. Repeat for pencil.: watch and pencil Ask the patient to repeat the phrase 'No ifs, ands, or buts' after you.: correct Ask the patient to 'take a piece of paper with their right hand' 'fold paper in half' 'place paper on floor': take paper in right hand and fold paper in half Print the sentence 'CLOSE YOUR EYES' on a piece. If patient actually closes eyes then score.: followed written direction Give patient a blank piece of paper & ask to write a sentence. Score if it contains a noun & verb.: sentence contains subject and verb Ask patient to copy figure of intersecting pentagons exactly. Score if all 10 angles & 2 intersects are included.: all 10 angles present & 2 are intersected Score Score: 20 Assessment & Plan Assessment & Plan (1) Dementia: Comment: Mild likely vascular vs mixed. Code(s): F03.90 - Unspecified dementia, unspecified severity, without behavioral disturbance, psychotic disturbance, mood disturbance, and anxiety Plan I will evaluate her with CT Brain TSH was normal I will check her Vit B 12 levels, CMP . Cognitive exercises. Orders: Orders Vitamin B12 and Folate Today F03.90 - Unspecified dementia, unspecified severity, without behavioral disturbance, psychotic disturbance, mood disturbance, and anxiety Comprehensive Met. Panel Today F03.90 - Unspecified dementia, unspecified severity, without behavioral disturbance, psychotic disturbance, mood disturbance, and anxiety CT head/brain wo IV con Today F03.90 - Unspecified dementia, unspecified severity, without behavioral disturbance, psychotic disturbance, mood disturbance, and anxiety Medications: New memantine 1 tab qd for 4 weeks then 1 tab bid orally 2 times a day; 60 tabs 6RF Coding Level of Care Code New Pt Level 4 (68662) Diagnoses Dementia F03.90
[2022-12-10 10:51] VITALS: BP 130/78; PULSE 99; O2SAT 100
== END 2022-12-10 11:25 | disposition home or self-care (01) ==
PROVIDERS: Visit Provider Psychiatry & Neurology Neurology
DX: F03.90 Unspecified dementia, unspecified severity, without behavioral disturbance, psychotic disturbance, mood disturbance, and anxiety (principal)
CPT/HCPCS: 99204

== ENCOUNTER → 2022-12-10 10:47 | Outpatient (BNVA) | payer OTHER, SELFPAY | PROVIDERS: Visit Provider Psychiatry & Neurology Neurology ==

== ENCOUNTER 2022-12-25 10:29 | Outpatient (AMB) | payer OTHER, SELFPAY ==
[2022-12-25 10:43] VITALS: BP 152/90; PULSE 69; O2SAT 97; BMI 37.1
--- NOTE | 2022-12-25 10:43 | A.OFFPC_ITS ---
Vital Signs 3 12/25/22 10:43 12/25/22 12:09 Height 5 ft Weight 190 lb BMI 37.1 BP 152/90 H 134/80 Blood Pressure Location Lt brachial Lt brachial Position Sitting Sitting Pulse 69 Pulse Source Pulse Oximeter Temp Source Skin Pulse Oximetry (%) 97 Oxygen Delivery Method Room Air Intake Visit Reasons: DM, HTN Counter Top Assembler Required: Yes Counter Top Assembler Language: Algerian Allergies penicillin G [Penicillin G] Allergy (Mild, Verified 12/25/22 11:58) RASH Medication List - Last Reconciled 12/25/22 by JAVAD Herbert albuterol sulfate 90 mcg/actuation 90 mcg inhalation Q4H PRN amlodipine 5 mg PO DAILY 90 days aspirin 81 mg PO DAILY 90 days atorvastatin 40 mg PO DAILY blood sugar diagnostic (StorspeedStyle Test strips) As directed blood sugar diagnostic As directed gabapentin 100 mg PO BEDTIME hydroxyzine HCl 25 mg PO BID lancets (FreeStyle Lancets) As directed levothyroxine 100 mcg PO DAILY 90 days lidocaine 4% (Aspercreme (lidocaine)) 1 patch topical DAILY PRN losartan 100 mg PO DAILY 90 days Magic Mouthwash Diphen/Lido/Antacid 1:1:1 10 mL PO TID 3 days memantine 1 tab qd for 4 weeks then 1 tab bid orally 2 times a day; metformin ER 1,000 mg PO BID nitroglycerin 1 tab sublingual NEEDED pantoprazole 40 mg PO DAILY 90 days potassium chloride ER (Klor-Con M) 20 mEq PO DAILY propranolol 20 mg PO DAILY sertraline 100 mg PO DAILY Tobacco use date assessed: 12/25/22 Fall risk assessment: No Falls in past year Last assessed Fall Risk: 12/25/22 HPI DM, HTN 2 HPI0 Details Patient is a 77-year-old female who presents to follow-up on her chronic conditions. Patient of Dr. Ross. History significant for hypertension, diabetes - followed by [facility], GERD, postoperative hypothyroidism, depression, anxiety, hyperlipidemia, schatzki's ring of distal esophagus - followed by Dr. Calabrese, CAD with cardiac stent in 2010-followed by [facility]. Patient reports diabetic eye exam last month. A1c 10.8 today, POTATO INSPECTOR reports that patient has been taking metformin 500 mg 1 tablet daily only, according to orders patient should be on metformin 1000 mg b.i.d. patient does not follow low-carbohydrate diet. In addition, patient reports rash under her breast and in groin for the past some time. Patient also reports right arm skin mole and she would like this to be evaluated. Patient also reports right upper arm tender lump to palpation with pruritus, denies injury. Patient is a Algerian-speaking and her POTATO INSPECTOR helping with interpretation. [facility] Medical History Dementia COVID-19 vaccine administered Personal history of COVID-19 Cancer Elevated cholesterol Myocardial infarction CAD (coronary artery disease) Thyroid disease Incisional hernia, without obstruction or gangrene Diabetes mellitus HTN (hypertension) with goal to be determined Surgical History History of esophagogastroduodenoscopy (EGD) History of incisional hernia repair Hx of cholecystectomy Hx of partial nephrectomy Hx of thyroidectomy History of carpal tunnel surgery of right wrist History of colon resection Hx of cataract extraction Diverticula, colon History of umbilical hernia repair History of heart artery stent History of excision of mass History of knee surgery History of hysterectomy for benign disease Family History Mother No problems noted. Father No problems noted. Social History Household Members: Spouse Housing: House Are you a primary healthcare translator to a significant other at home: No Do you presently have visiting nurse or other home services: No Patient Tobacco Use Status: Never used Tobacco e-Cigarette/Vaping Use: Never Used Second Hand Smoke Exposure: No service: No Current occupational status: disabled Cognitive needs: Yes Hearing needs: No Vision needs: Yes Questionnaire Thrive Questionnaire Date Thrive assessed: 06/04/22 AUDIT C Alcohol Use Questionnaire (AUDIT-C) 1. How often do you have a drink containing alcohol?: Never Total Score: 0 Score Reviewed/Action Taken: No BRITTANI-7 AMB Questionnaire BRITTANI-7 Date BRITTANI - 7 assessed: 06/04/22 Source: Developed by Drs. Ramon Hartman, Laine Plaza, Ye Lazaro and colleagues, with an educational liseth from [employer]. Review of Systems Const Denies body aches, Denies chills, Denies fever(s) and Denies headache(s) Eyes Denies change in vision ENT Denies dizziness, Denies otalgia, Denies headache(s), Denies nasal discharge, Denies sinus pain and Denies sore throat Card Denies chest pain, Denies edema, Denies lightheadedness and Denies dyspnea Resp Denies dyspnea and Denies wheezing GI Denies abdominal pain Denies dysuria Musc Denies myalgias Skin/Breast Reports as per HPI and Reports rash Neuro Denies dizziness and Denies headache(s) Aller/Immun Denies wheezing Physical exam (Primary Care) Vital Signs: Last Vital Signs Pulse 69 12/25/22 10:43 BP 152/90 H 12/25/22 10:43 Pulse Ox 97 12/25/22 10:43 Oxygen Delivery Method Room Air 12/25/22 10:43 BMI result Body Mass Index 37.1 Tobacco/Smoking Status: Tobacco use Status Tobacco use date assessed 12/25/22 12/25/22 10:44 Patient Tobacco Use Status Never used Tobacco 12/25/22 10:44 e-Cigarette/Vaping Use Never Used 12/25/22 10:44 Thrive Assessment: Date of Thrive Assessment Date Thrive assessed 06/04/22 12/25/22 10:44 Const General: cooperative and no acute distress Orientation/consciousness: oriented to person and oriented to place HENVT Head: Yes normocephalic and Yes atraumatic Throat: Yes posterior oropharynx normal Eyes General: appearance normal, both eyes and all related structures Neck Neck: Yes normal visual inspection and Yes full ROM Resp Effort & Inspection: normal respiratory effort and able to speak in complete sentences Auscultation: clear to auscultation bilaterally, no crackles, no rales, no rhonchi and no wheezes Cardio Rate: regular rate Rhythm: regular rhythm Heart sounds: S1 normal heart sound present, S2 normal heart sound present and no murmurs GI Auscultation: normal bowel sounds Skin Other: Mild erythema noted under bilateral breast and in groin area, skin is intact Right distal arm with brown raised area about 5mm, nontender, no signs of infection noted Full body images: 2 1. Right upper arm palpable tender area slightly raised about 2cm, skin is intact, no signs of infection noted Neuro General: oriented to person and oriented to place Extrem General: Yes full ROM and No edema Results AMB Hemoglobin A1c 2 AMB Hemoglobin A1c 10.8 % Last Edit by SHAUN Sosa on 12/25/22 11:53 Results Reviewed Results Reviewed: Laboratory Last Values Hgb A1c (Clinic) 10.8 % (4.0-6.0) H 12/25/22 11:51 Assessment and Plan Assessment & Plan (1) Hyperlipidemia LDL goal <70: Code(s): E78.5 - Hyperlipidemia, unspecified Plan: LDL 75 11/2022 Continue current treatment Low-cholesterol diet (2) Essential hypertension: Code(s): I10 - Essential (primary) hypertension Plan: Goal BP equal or less than 140/90 Continue current treatment Low-sodium diet and weight loss (3) Diabetes mellitus: Comment: NIDDM Code(s): E11.9 - Type 2 diabetes mellitus without complications Plan: A1c 10.8 today, previous 10.7, goal less than 7 Metformin 1000 mg b.i.d. - POTATO INSPECTOR reports that patient has been taking only 500 mg metformin daily, patient is to start taking metformin as prescribed - POTATO INSPECTOR will make sure patient takes correct dose Continue to follow-up with [facility] Reinforced Low-carbohydrate diet Continue to monitor blood sugars at home (4) Skin mole: Code(s): D22.9 - Melanocytic nevi, unspecified Plan: Dermatology referral for an evaluation and treatment (5) Skin lump of arm: Code(s): R22.30 - Localized swelling, mass and lump, unspecified upper limb Plan: Right upper arm palpable tender area slightly raised about 2cm, skin is intact, no signs of infection noted ? Lipoma Will do ultrasound (6) Rash: Code(s): R21 - Rash and other nonspecific skin eruption Plan: Suspect fungal rash Start nystatin powder b.i.d. p.r.n. Keep area dry and clean Plan Follow-up with PCP in 3 months or sooner as needed Orders: Orders 2 AMB Hemoglobin A1c Today E11.9 - Type 2 diabetes mellitus without complications US extremity nonvascular Today R22.30 - Localized swelling, mass and lump, unspecified upper limb Referrals 2 Dermatology Referral D22.9 - Melanocytic nevi, unspecified Medications: New 2 nystatin 1 appl topical BID PRN 30 grams 0RF rash R21 - Rash and other nonspecific skin eruption Refilled 2 metformin ER 1,000 mg PO BID 60 tabs 3RF E11.9 - Type 2 diabetes mellitus without complications Coding Level of Care Code Est Pt Level 4 (88554) Diagnoses Hyperlipidemia LDL goal <70 E78.5 Essential hypertension I10 Diabetes mellitus E11.9 Skin mole D22.9 Skin lump of arm R22.30 Rash R21
[2022-12-25 12:09] VITALS: BP 134/80
== END 2022-12-25 12:19 | disposition home or self-care (01) ==
PROVIDERS: PCP Internal Medicine; Visit Provider Nurse Practitioner Family
DX: E78.5 Hyperlipidemia, unspecified (principal); I10 Essential (primary) hypertension; E11.9 Type 2 diabetes mellitus without complications; D22.9 Melanocytic nevi, unspecified; R22.30 Localized swelling, mass and lump, unspecified upper limb; R21 Rash and other nonspecific skin eruption
CPT/HCPCS: 83036; 99214

== ENCOUNTER 2023-03-12 09:50 | Outpatient (AMB) | payer OTHER, SELFPAY ==
--- NOTE | 2023-03-12 10:32 | MHC.AMDMED ---
Intake Intake Visit Reasons: diabetes mellitus without complications/lvm Inspector Materials And Processes Required: Yes Inspector Materials And Processes Language: Assistant Business Manager Name: Pawan [id number] Accompanied by: Other Relationship Allergies penicillin G [Penicillin G] Allergy (Mild, Verified 12/25/22 11:58) RASH HPI Comprehensive Diabetes Asmnt Most Recent Diabetes Results: Microalb/Creat Ratio 13.2 ug/mg cr (<30) 11/27/22 Cholesterol 162 mg/dL (<200) 11/27/22 HDL Cholesterol 64 mg/dL (>40) 11/27/22 Triglycerides 117 mg/dL (<150) 11/27/22 Creatinine 0.95 mg/dL (0.5-1.4) 11/27/22 Blood Urea Nitrogen 7 mg/dL (9-16) L 11/27/22 Sodium 140 mmol/L (135-145) 11/27/22 Potassium 3.8 mmol/L (3.3-5.1) 11/27/22 Chloride 101 mmol/L (96-108) 11/27/22 Carbon Dioxide 27 mmol/L (22-29) 11/27/22 Calcium 8.4 mg/dL (8.4-10.2) 11/27/22 [facility] Medical History Dementia COVID-19 vaccine administered Personal history of COVID-19 Cancer Elevated cholesterol Myocardial infarction CAD (coronary artery disease) Thyroid disease Incisional hernia, without obstruction or gangrene Diabetes mellitus HTN (hypertension) with goal to be determined Surgical History History of esophagogastroduodenoscopy (EGD) History of incisional hernia repair Hx of cholecystectomy Hx of partial nephrectomy Hx of thyroidectomy History of carpal tunnel surgery of right wrist History of colon resection Hx of cataract extraction Diverticula, colon History of umbilical hernia repair History of heart artery stent History of excision of mass History of knee surgery History of hysterectomy for benign disease Family History Mother No problems noted. Father No problems noted. Social History Household Members: Spouse Housing: House Are you a primary adult care manager to a significant other at home: No Do you presently have visiting nurse or other home services: No Comment: pt sleeping Patient Tobacco Use Status: Never used Tobacco e-Cigarette/Vaping Use: Never Used Second Hand Smoke Exposure: No service: No Current occupational status: disabled Cognitive needs: Yes Hearing needs: No Vision needs: Yes Assessment & Plan Assessment & Plan (1) Diabetes mellitus: Comment: NIDDM Code(s): E11.9 - Type 2 diabetes mellitus without complications Plan: Learning objectives: The patient was provided with verbal and written education on the following topics as outlined below. The patient met all learning objectives and was able to verbalize understanding and provide teach back of education topics discussed . The patient was provided with the opportunity to ask questions and all questions were answered. Patient Assessment Assess patient education level/literacy/barriers Patient questions/concerns, patient's last A1c was 10.8% in December 2022. Patient requested prescription for new meter, strips and lancets at today's visit. Patient's PCP reports patient eats high carbohydrate snacks daily, and drinks fruit juice and [place] daily. Currently patient is on metformin 1000 mg b.i.d. Patient reports that she craves this sweet snacks when feeling under stress. Patient also has diverticulitis which limits some food choices. Patient missed appointment with dietitian in December 2022. Recommended she reschedule appointment with dietitian What is Diabetes? Pathophysiology How the body produces and uses insulin Identify type of DM Risk factors Signs of Diabetes Brief overview of Diabetes Management Monitoring blood sugar Following a meal plan Regular exercise Maintaining a healthy weight Taking medication as needed Members of the care team (PCP, RN, MA, RD, CDE, smooth plater) Blood glucose monitoring When/how often to test Target blood sugar ranges Patient did not bring meter to today's visit Introduction to Nutrition Importance of healthy diet in managing DM Diet is personalized to individual preference Review patient?s regular diet/food preferences Who prepares meals/does food shopping/ Dining out?/ Barriers? How diet effects glucose Eating 3 balanced meals a day with small, healthy snacks between meals Review food groups Carbohydrates: What is a carbohydrate/Which food/food groups are considered carbohydrates Effect of carbohydrates on blood glucose Portion sizes Reading food labels Basic carb counting (if applicable per nursing assessment) Plate method Meal planning Recommendations: Follow plate method, consistent carbs and read nutritional labels. Smart Goal: Patient will replace 1 high carbohydrates with 1 low carbohydrates snack, between now and next visit with family living educator in 1 month Educational Materials: The patient was provided with the following written educational materials: Planning Healthy Meals Handout Patient Response to instructions: Comprehension of Instructions: Fair Readiness to make changes: Contemplation How confident they feel about making changes: Poor Patient Instructions: Incluir actividad diaria regular. ADA recomienda 30 minutos de ejercicio 5 d?as a la semana. P?rdida de peso, hable con el PCP o el cardi?logo antes de comenzar un nuevo plan. Mida el nivel de az?car en la ankush seg?n las indicaciones; Ayuno y comida m?s mihaela de 2hpp. Observe las tendencias en los resultados. Utilice los resultados y eval?e c?mo los alimentos, la actividad f?jorge y los medicamentos afectan los resultados de az?car en la ankush. Lleve el gluc?metro o CGM a la pr?xima visita. Conocer los medicamentos para la diabetes, woo acci?n, los efectos secundarios, la eficacia, la toxicidad, la dosis prescrita, el momento y la frecuencia de administraci?n apropiados, el efecto de las dosis olvidadas y retrasadas y las instrucciones de almacenamiento, viaje y seguridad. T?cnicas de resoluci?n de problemas para el seguimiento de episodios de hipo/hiperglucemia y tratamientos. Reducir los comportamientos de reducci?n de riesgos, dejar de fumar, ex?menes regulares de ojos, pies y dentales. Coding Level of Care Code Est Pt Level 1 (88452) Diagnoses Diabetes mellitus E11.9
== END 2023-03-12 10:38 | disposition home or self-care (01) ==
PROVIDERS: PCP Internal Medicine; Visit Provider Registered Nurse Diabetes Educator
DX: E11.9 Type 2 diabetes mellitus without complications (principal)

== ENCOUNTER → 2023-03-12 09:50 | Outpatient (BNVA) | payer OTHER, SELFPAY | PROVIDERS: PCP Internal Medicine; Visit Provider Registered Nurse Diabetes Educator | DX: E11.9 Type 2 diabetes mellitus without complications (principal) | CPT/HCPCS: 99211 ==

== ENCOUNTER 2023-04-26 09:51 | Outpatient (AMB) | payer OTHER, SELFPAY ==
--- NOTE | 2023-04-26 10:28 | A.OFFVIS_ITS ---
Intake Intake Visit Reasons: DM Staff Engineer Required: Yes Staff Engineer Language: Box Hinge And Lock Attacher Name: Alicia [facility] Information Interpreted: non-clinical & clinical Accompanied by: Other Relationship Allergies penicillin G [Penicillin G] Allergy (Mild, Verified 12/25/22 11:58) RASH HPI Comprehensive Diabetes Asmnt Most Recent Diabetes Results: Microalb/Creat Ratio 13.2 ug/mg cr (<30) 11/27/22 Cholesterol 162 mg/dL (<200) 11/27/22 HDL Cholesterol 64 mg/dL (>40) 11/27/22 Triglycerides 117 mg/dL (<150) 11/27/22 Creatinine 0.95 mg/dL (0.5-1.4) 11/27/22 Blood Urea Nitrogen 7 mg/dL (9-16) L 11/27/22 Sodium 140 mmol/L (135-145) 11/27/22 Potassium 3.8 mmol/L (3.3-5.1) 11/27/22 Chloride 101 mmol/L (96-108) 11/27/22 Carbon Dioxide 27 mmol/L (22-29) 11/27/22 Calcium 8.4 mg/dL (8.4-10.2) 11/27/22 [facility] Medical History Dementia COVID-19 vaccine administered Personal history of COVID-19 Cancer Elevated cholesterol Myocardial infarction CAD (coronary artery disease) Thyroid disease Incisional hernia, without obstruction or gangrene Diabetes mellitus HTN (hypertension) with goal to be determined Surgical History History of esophagogastroduodenoscopy (EGD) History of incisional hernia repair Hx of cholecystectomy Hx of partial nephrectomy Hx of thyroidectomy History of carpal tunnel surgery of right wrist History of colon resection Hx of cataract extraction Diverticula, colon History of umbilical hernia repair History of heart artery stent History of excision of mass History of knee surgery History of hysterectomy for benign disease Family History Mother No problems noted. Father No problems noted. Social History Household Members: Spouse Housing: House Are you a primary urgent care physician assistant to a significant other at home: No Do you presently have visiting nurse or other home services: No Comment: pt sleeping Patient Tobacco Use Status: Never used Tobacco e-Cigarette/Vaping Use: Never Used Second Hand Smoke Exposure: No service: No Current occupational status: disabled Cognitive needs: Yes Hearing needs: No Vision needs: Yes Assessment & Plan Assessment & Plan (1) Diabetes mellitus: Comment: NIDDM Code(s): E11.9 - Type 2 diabetes mellitus without complications Plan: Learning objectives: The patient was provided with verbal and written education on the following topics as outlined below. Assess patient education level/literacy/barriers Patient questions/concerns, patient prepped blood glucose meter with only 4 readings, all readings above target level. Patient reports she is only taking metformin ER 1000 mg daily. Reports that when she was taking metformin b.i.d. it was causing stomach upset. Instructed patient to discuss at her next visit with PCP on 05/13/2023 adding different diabetes medication Patient also reports that she has a difficult time controlling sweets because she feels she has in a stressful situation at home her . Reports it is important to her to try and control glucose because she wants to see her great grandchildren grow up. Discussed patient try and set small measurable goals, in the attempt to change behavior slowly. The patient met all learning objectives and was able to verbalize understanding and provide teach back of education topics discussed . The patient was provided with the opportunity to ask questions and all questions were answered. Topics covered in today?s session included: Medications (If applicable) * Name of medication? * Dosing/administration instructions? * Mechanism of action? * Potential side effects? * Potential adverse reaction and appropriate treatment? * Review onset, peak, duration Assess for concerns re: insurance coverage, cost, barriers to compliance Hypoglycemia and Hyperglycemia * Signs and symptoms? * Causes?? * Treatment? * Preventing hypoglycemia? * When to seek medical attention * Blood glucose targets and how you feel when your blood glucose is in and out of your target ranges. * Monitoring and knowing your A1C. * What can make blood glucose go up and down and preventing high and low blood glucose. * Review of blood sugar targets in expected goal range and outside of expected goal range. * Problem solving and preventing hyper/hypoglycemia. * Sick day management of diabetes. * Using blood sugar results in decision making process in managing diabetes. ?Patient was receptive to information provided and participated in the discussion. Asked?appropriate questions and demonstrated good understanding of the topics discussed.? ? Educational Materials: The patient was provided with the following written educational materials: Target Goal handout Smart Goal Assessment:? Patient will reduce sugary snacks Pt met goal less than 25% New Smart Goal: Continue on goal to reduce sugary snacks Patient Response to instructions: Comprehension of Instructions: Good Readiness to make changes:? Pre contemplation How confident they feel about making changes: Poor Patient Instructions: Follow-up with development educator in 1 month Coding Level of Care Code Est Pt Level 1 (44735) Diagnoses Diabetes mellitus E11.9
== END 2023-04-26 10:36 | disposition home or self-care (01) ==
PROVIDERS: PCP Internal Medicine; Visit Provider Registered Nurse Diabetes Educator
DX: E11.9 Type 2 diabetes mellitus without complications (principal)

== ENCOUNTER → 2023-04-26 09:51 | Outpatient (BNVA) | payer OTHER, SELFPAY | PROVIDERS: PCP Internal Medicine; Visit Provider Registered Nurse Diabetes Educator | DX: E11.9 Type 2 diabetes mellitus without complications (principal) | CPT/HCPCS: 99211 ==

== ENCOUNTER 2023-05-13 09:37 | Outpatient (AMB) | payer OTHER, SELFPAY ==
[2023-05-13 09:38] VITALS: BP 110/72; BMI 34.6
--- NOTE | 2023-05-13 09:38 | A.OFFPC_ITS ---
Vital Signs 05/13/23 09:38 Height 5 ft Weight 177 lb BMI 34.6 BP 110/72 Blood Pressure Location Lt brachial Position Sitting Intake Visit Reasons: DM Intake Note: Patient here for a follow up DM Rfid Analyst Required: No Accompanied by: remote pilot operator Allergies penicillin G [Penicillin G] Allergy (Mild, Verified 05/13/23 10:03) RASH Medication List - Last Reconciled 05/13/23 by Lauren Lopez MD albuterol sulfate 90 mcg/actuation 90 mcg inhalation Q4H PRN amlodipine 5 mg PO DAILY 90 days aspirin 81 mg PO DAILY 90 days atorvastatin 40 mg PO DAILY blood sugar diagnostic As directed blood sugar diagnostic (FreeStyle Test strips) As directed tests 2 X/day blood-glucose meter (FreeStyle Lite Meter kit) As directed gabapentin 100 mg PO BEDTIME hydroxyzine HCl 25 mg PO BID lancets (FreeStyle Lancets) As directed levothyroxine 100 mcg PO DAILY 90 days lidocaine 4% (Aspercreme (lidocaine)) 1 patch topical DAILY PRN losartan 100 mg PO DAILY 90 days Magic Mouthwash Diphen/Lido/Antacid 1:1:1 10 mL PO TID 3 days memantine 1 tab qd for 4 weeks then 1 tab bid orally 2 times a day; metformin ER 1,000 mg PO BID nitroglycerin 1 tab sublingual NEEDED nystatin 1 appl topical BID PRN pantoprazole 40 mg PO DAILY 90 days potassium chloride ER (Klor-Con M) 20 mEq PO DAILY propranolol 20 mg PO DAILY sertraline 100 mg PO DAILY Tobacco use date assessed: 05/13/23 Fall risk assessment: No Falls in past year Last assessed Fall Risk: 05/13/23 Dental Screening Dental Screen Date: 05/13/23 Did you have a dental visit in the last 12 months?: No Did you have a dental problem in the last 6 months where you did not have access to dental care?: No Was dental information given to patient?: Patient has dentist HPI HPI Comments History of Present Illness Details This is an 78-year-old female with diabetes mellitus type 2, hypertension, hyperlipidemia, mild recurrent major depression, hypothyroidism and dementia that comes today accompanied by RESIN SHAVER for follow-up on her conditions. She walks with a walker for gait stability. A1c not on goal and I will start her on insulin. Blood pressure stable. LDL within goal. Depression well controlled with SSRIs and does have counseling once a week. TSH will be order to be done today. On memantine for her dementia and she is awake, alert and oriented to person and place but not to time. [facility] Medical History Dementia COVID-19 vaccine administered Personal history of COVID-19 Cancer Elevated cholesterol Myocardial infarction CAD (coronary artery disease) Thyroid disease Incisional hernia, without obstruction or gangrene Diabetes mellitus HTN (hypertension) with goal to be determined Surgical History History of esophagogastroduodenoscopy (EGD) History of incisional hernia repair Hx of cholecystectomy Hx of partial nephrectomy Hx of thyroidectomy History of carpal tunnel surgery of right wrist History of colon resection Hx of cataract extraction Diverticula, colon History of umbilical hernia repair History of heart artery stent History of excision of mass History of knee surgery History of hysterectomy for benign disease Family History Mother No problems noted. Father No problems noted. Social History Household Members: Spouse Housing: House Are you a primary chronic care nurse to a significant other at home: No Do you presently have visiting nurse or other home services: No Comment: pt sleeping Patient Tobacco Use Status: Never used Tobacco e-Cigarette/Vaping Use: Never Used Second Hand Smoke Exposure: No service: No Current occupational status: disabled Cognitive needs: Yes Hearing needs: No Vision needs: Yes Questionnaire PHQ-9 Over the last 2 weeks, how often have you been bothered by any of the following problems? 1. Little interest or pleasure in doing things: not at all 2. Feeling down, depressed, or hopeless: several days 3. Trouble falling or staying asleep, or sleeping too much: several days 4. Feeling tired or having little energy: several days 5. Poor appetite or overeating: several days 6. Feeling bad about yourself - or that you are a failure or have let yourself or your family down: not at all 7. Trouble concentrating on things, such as reading the newspaper or watching television: not at all 8. Moving or speaking so slowly that other people could have noticed. Or the opposite - being so fidgety or restless that you have been moving around a lot more than usual: not at all 9. Thoughts that you would be better off or of hurting yourself in some way: not at all Total score: 4 Depression Screening Interpretation: Positive Depression Screening Follow-up: Existing condition, In treatment and Community Mental Health Worker F/U Depression Screening Done: Yes 09524 - PHQ-9 Billing: Yes Source: Developed by Drs. Ramon Hartman, Laine Plaza, Ye Lazaro and colleagues, with an educational liseth from [employer]. Thrive Questionnaire Date Thrive assessed: 05/13/23 I am a: Patient What is your living situation today?: I have a steady place to live Within the past 12 months, did the food you bought not last and you didn't have the money to get more?: Never true Within the past 12 months, did you worry whether your food would run out before you got money to buy more?: Never true Do you have trouble paying for medicines?: No Do you have trouble getting transportation to medical appointments?: No Do you have trouble paying your heating and electricity bill?: No Do you have trouble taking care of your child, family member or friend?: No Do you have trouble with day-to-day activities such as bathing, preparing meals, shopping, managing finances, etc.?: Yes Are you currently unemployed and looking for a job?: No Are you interested in more education?: No Please select the resources that you would like help with: None Currently or been in a relationship where the following occur: no concerns reported THRIVE Score: 0 AUDIT C Alcohol Use Questionnaire (AUDIT-C) 1. How often do you have a drink containing alcohol?: Never Total Score: 0 BRITTANI-7 AMB Questionnaire BRITTANI-7 Date BRITTANI - 7 assessed: 05/13/23 Feeling nervous, anxious, or on edge: 2 = More than half the days Not being able to stop or control worryin = Not at all Worrying too much about different things: 3 = Nearly every day Trouble relaxin = Several days Being so restless that it is hard to sit still: 1 = Several days Becoming easily annoyed or irritable: 0 = Not at all Feeling afraid as if something awful might happen: 3 = Nearly every day Total BRITTANI-7 score (0-4 normal; 5-9 mild; 10-14 moderate; 15-21 severe): 10 Source: Developed by Drs. Ramon Hartman, Laine Plaza, Ye Lazaro and colleagues, with an educational liseth from [employer]. BRITTANI-7 Assessment Billing BRITTANI-7 Assessment Tool: BRITTANI-7 Assessment 76762 Review of Systems Const All systems reviewed & are unremarkable except as noted in HPI and below Eyes Reports no additional complaints, Denies change in vision and Denies other visual disturbances Card Denies chest pain at rest, Denies chest pain with activity, Denies edema, Denies irregular heart rhythm, Denies claudication, Denies dyspnea, Denies dyspnea on exertion, Denies orthopnea, Denies paroxysmal nocturnal dyspnea and Denies slow heart rate Resp Denies cough, Denies dyspnea and Denies dyspnea on exertion GI Denies abdominal pain, Denies change in bowel habits, Denies excessive flatus, Denies nausea and Denies vomiting Denies urinary incontinence, Denies urinary hesitancy and Denies urinary urgency Musc Denies abnormal gait, Denies atrophy, Denies deformity and Denies limited range of motion Skin/Breast Denies bleeding lesions, Denies changing lesions and Denies rash Neuro Denies abnormal gait and Denies lack of coordination Physical exam (Primary Care) Vital Signs: Last Vital Signs BP 110/72 05/13/23 09:38 BMI result Body Mass Index 34.6 Tobacco/Smoking Status: Tobacco use Status Tobacco use date assessed 05/13/23 05/13/23 09:53 Patient Tobacco Use Status Never used Tobacco 05/13/23 09:39 e-Cigarette/Vaping Use Never Used 05/13/23 09:39 PHQ-9: PHQ-9 Score PHQ-9: Total score 4 05/13/23 10:06 Depression Screening Interpretation: Positive Depression Screening Follow-up: Existing condition, In treatment and Community Mental Health Worker F/U Thrive Assessment: Date of Thrive Assessment Date Thrive assessed 05/13/23 05/13/23 09:53 Currently or been in a relationship where the following occur: no concerns reported Const Limitations: ambulation with walker Eyes General: appearance normal, both eyes and all related structures Eyelids: Yes eyelids normal Conjunctivae: conjunctivae normal Neck Neck: Yes normal visual inspection and Yes supple Resp Effort & Inspection: normal respiratory effort Auscultation: clear to auscultation bilaterally Cardio Jugular venous distension: no JVD Rate: regular rate Rhythm: regular rhythm Heart sounds: S1 normal heart sound present and S2 normal heart sound present Extrem General: Yes full ROM Psych Appearance: grossly normal Results AMB Hemoglobin A1c AMB Hemoglobin A1c 14.0 % Last Edit by SHAUN uRiz on 05/13/23 09: 56 Results Reviewed Results Reviewed: Laboratory Last Values Hgb A1c (Clinic) 14.0 % (4.0-6.0) H 05/13/23 09:39 Assessment and Plan Assessment & Plan (1) Diabetes mellitus: Comment: NIDDM Code(s): E11.9 - Type 2 diabetes mellitus without complications Qualifiers: Diabetes mellitus type: type 2 Diabetes mellitus local intermodal truck driver insulin use: with local intermodal truck driver use Diabetes mellitus complication status: with hyperglycemia Qualified Code(s): E11.65 - Type 2 diabetes mellitus with hyperglycemia; Z79.4 - moth exterminator (current) use of insulin Plan: Continue metformin once a day due to stomach issues if she has a twice a day. Start insulin. A1c goal is equal or less than 7%. (2) Mild recurrent major depression: Code(s): F33.0 - Major depressive disorder, recurrent, mild Plan: Continue SSRIs. Continue counseling once a week. (3) Essential hypertension: Code(s): I10 - Essential (primary) hypertension Plan: Continue amlodipine. Blood pressure goal is equal or less than 130/80. (4) Hyperlipidemia LDL goal <70: Code(s): E78.5 - Hyperlipidemia, unspecified Plan: Continue statins. Repeat lipid panel. LDL goal is less than 70. (5) Dementia: Comment: Mild likely vascular vs mixed. Code(s): F03.90 - Unspecified dementia, unspecified severity, without behavioral disturbance, psychotic disturbance, mood disturbance, and anxiety Plan: Continue memantine. (6) Postoperative hypothyroidism: Code(s): E89.0 - Postprocedural hypothyroidism Plan: Continue levothyroxine. Orders: Orders Thyroid Stimulating Hormone Today E89.0 - Postprocedural hypothyroidism Lipid Panel 4 Months E78.5 - Hyperlipidemia, unspecified Microalbumin, Random (w Creat) 4 Months E11.9 - Type 2 diabetes mellitus without complications Comprehensive [place]. Panel Fast 4 Months E11.9 - Type 2 diabetes mellitus without complications AMB Hemoglobin A1c Today E11.9 - Type 2 diabetes mellitus without complications Medications: New insulin degludec (Tresiba FlexTouch U-100 insulin) 10 units (0.1 mL) subcut DAILY 90 days 9 mL 1RF pen needle, diabetic (BD Ultra-Fine Short Pen Needle) As directed 100 ea 1RF Changed From metformin ER 1,000 mg PO BID 60 tabs 3RF E11.9 - Type 2 diabetes mellitus without complications To metformin ER 1,000 mg PO DAILY 90 days 90 tabs 1RF E11.9 - Type 2 diabetes mellitus without complications Refilled amlodipine 5 mg PO DAILY 90 days 90 tabs 1RF Coding Level of Care Code Est Pt Level 4 (76228) Diagnoses Type 2 diabetes mellitus with hyperglycemia, with long-term current use of insulin E11.65; Z79.4 Diabetes mellitus type: type 2 Diabetes mellitus local intermodal truck driver insulin use: with local intermodal truck driver use Diabetes mellitus complication status: with hyperglycemia Mild recurrent major depression F33.0 Essential hypertension I10 Hyperlipidemia LDL goal <70 E78.5 Dementia F03.90 Postoperative hypothyroidism E89.0 Additional Codes BRITTANI-7 Assessment Billing - BRITTANI-7 Assessment Tool: BRITTANI-7 Assessment [id number] ([id number]) Time Spent (min) 24
== END 2023-05-13 10:16 | disposition home or self-care (01) ==
PROVIDERS: PCP Internal Medicine; Visit Provider Internal Medicine
DX: E11.65 Type 2 diabetes mellitus with hyperglycemia (principal); Z79.4 Long term (current) use of insulin; F33.0 Major depressive disorder, recurrent, mild; F03.90 Unspecified dementia, unspecified severity, without behavioral disturbance, psychotic disturbance, mood disturbance, and anxiety; E11.69 Type 2 diabetes mellitus with other specified complication; I10 Essential (primary) hypertension; E78.5 Hyperlipidemia, unspecified; E89.0 Postprocedural hypothyroidism
CPT/HCPCS: 83036; 99214

== ENCOUNTER 2023-05-13 10:25 | Outpatient (REF) | payer OTHER, SELFPAY ==
[2023-05-13 12:07] LABS: Thyroid Stimulating Hormone > 100.00 uIU/mL (0.32-4.0)
== END 2023-05-13 10:26 | disposition home or self-care (01) ==
LOC: HO.LAB 10:25
PROVIDERS: Visit Provider Internal Medicine
DX: E89.0 Postprocedural hypothyroidism (principal)
CPT/HCPCS: 36415; 84443

== ENCOUNTER 2023-07-15 10:37 | Outpatient (AMB) | payer OTHER, SELFPAY ==
--- NOTE | 2023-07-15 10:40 | MHC.OFFVIS ---
Vital Signs 07/15/23 10:45 Height 5 ft Weight 186 lb 8.177 oz BMI 36.4 BP 130/64 Blood Pressure Location Lt brachial Position Sitting Pulse 66 Pulse Source Pulse Oximeter Intake Visit Reasons: DM-confirmed Intake Note: Patient presents today to follow up on D2MT. Last Diabetic Eye exam: 08/2022 Last Podiatry Visit: Doesn't have one. Random Glucose: 116 mg/dl HgA1c: 14.0% 05/13/23 Multiple Cut Off Saw Operator Required: Yes Multiple Cut Off Saw Operator Language: Feed Crusher Operator Name: Andrei Information Interpreted: non-clinical & clinical Accompanied by: RESILIENT TILE INSTALLER Allergies penicillin G [Penicillin G] Allergy (Mild, Verified 07/15/23 10:48) RASH Medication List - Last Reconciled 07/15/23 by Ramon George MD albuterol sulfate 90 mcg/actuation 90 mcg inhalation Q4H PRN amlodipine 5 mg PO DAILY 90 days aspirin 81 mg PO DAILY 90 days atorvastatin 40 mg PO DAILY blood sugar diagnostic As directed blood sugar diagnostic (FreeStyle Test strips) As directed tests 2 X/day blood-glucose meter (FreeStyle Lite Meter kit) As directed gabapentin 100 mg PO BEDTIME hydroxyzine HCl 25 mg PO BID insulin degludec (Tresiba FlexTouch U-100 insulin) 10 units (0.1 mL) subcut DAILY 90 days lancets (FreeStyle Lancets) As directed levothyroxine 112 mcg PO DAILY 90 days lidocaine 4% (Aspercreme (lidocaine)) 1 patch topical DAILY PRN losartan 100 mg PO DAILY 90 days Magic Mouthwash Diphen/Lido/Antacid 1:1:1 10 mL PO TID 3 days memantine 10 mg PO BID metformin ER 1,000 mg PO DAILY 90 days nitroglycerin 1 tab sublingual NEEDED nystatin 1 appl topical BID PRN pantoprazole 40 mg PO DAILY 90 days pen needle, diabetic (BD Ultra-Fine Short Pen Needle) As directed potassium chloride ER (Klor-Con M) 20 mEq PO DAILY propranolol 20 mg PO DAILY sertraline 100 mg PO DAILY HPI Comments Details: 77 YO M/F who is seen in consultation for T2DM at the request of PCP. Initially diagnosed with T2DM in 4 yrs . ?saw endo at [facility] Was initially started on treatment with metformin. Current regimen metformin 500 mg QD . Tresiba 10 units Glucometer download shows she is checking her point of care once a day.. Average glucose is 125 with standard deviation of 28.2. Range is 87-197. 92% range with 8% hyperglycemia and no hypoglycemia Most recent A1C [], [down] from prior [] on []. Family history of T2DM in sister , brother has Type 2 DM . Rare hypoglycemia Has eyes checked yearly, last eye exam last yr. Has appt this yr , denies retinopathy. Denies neuropathy, Not sees podiatry. Denies nephropathy, on ABRAHAN/ARB. UAC [] as measured on []. Has HLD, on statin atorvastatin 40 mg . Last LDL [] as measured on []. Denies CAD. Not Had diabetes education. [facility] Medical History Dementia COVID-19 vaccine administered Personal history of COVID-19 Cancer Elevated cholesterol Myocardial infarction CAD (coronary artery disease) Thyroid disease Incisional hernia, without obstruction or gangrene Diabetes mellitus HTN (hypertension) with goal to be determined Surgical History History of esophagogastroduodenoscopy (EGD) History of incisional hernia repair Hx of cholecystectomy Hx of partial nephrectomy Hx of thyroidectomy History of carpal tunnel surgery of right wrist History of colon resection Hx of cataract extraction Diverticula, colon History of umbilical hernia repair History of heart artery stent History of excision of mass History of knee surgery History of hysterectomy for benign disease Family History Mother No problems noted. Father No problems noted. Social History Household Members: Spouse Housing: House Are you a primary wound care center consultant to a significant other at home: No Do you presently have visiting nurse or other home services: No Comment: pt sleeping Patient Tobacco Use Status: Never used Tobacco e-Cigarette/Vaping Use: Never Used Second Hand Smoke Exposure: No service: No Current occupational status: disabled Cognitive needs: Yes Hearing needs: No Vision needs: Yes Review of Systems Neuro Reports confusion Psych Reports confusion Physical Exam Vital Signs: Last Vital Signs Pulse 66 07/15/23 10:45 BP 130/64 07/15/23 10:45 BMI result Body Mass Index 36.4 Absence of Cushingoid features. Absence of acromegalic features. Neck exam reveals healed scar status post thyroidectomy. No carotid bruits present. Lungs CTA. Heart S1 S2, Reg R/R. No M/R/ G. Skin exam reveals absence of vitiligo or acanthosis nigricans. Abdominal exam reveals Soft NT/ND with NA BS. No organomegaly present. Const General: cooperative, healthy appearing, comfortable and confusion Nutritional Appearance: overweight Orientation/consciousness: oriented to person and confusion Eyes Pupils: Equal, round and reactive pupils present Neck Other: . Neuro General: oriented to person, moves all extremities, no focal motor deficits and confusion Cranial nerves: Yes Facial sensation intact/muscles of mastication intact, Yes Equal, round and reactive pupils present, Yes Bilaterally intact EOM present, Yes Nystagmus not present, Yes Normal facial strength present and Yes Midline tongue present Cognition (Neuro): abnormal cognition Gait exam (Neuro): Antalgic gait present Motor exam (neuro): 5/5 motor strength present throughout and Normal motor muscle tone present throughout Extrem Other: Visual exam of foot performed. No ulcerations or open lesions. No onchomycosis, no callouses.Pulses 2 + distally Sensation intact to monofilament exam. Vibratory sensation sensed is intact with 128 Hz tuning fork Results Reviewed Results Reviewed: Laboratory Last Values Glucose (Clinic) 116 mg/dL (60-115) H 07/15/23 10:52 Assessment & Plan Assessment & Plan (1) Diabetes mellitus: Comment: NIDDM Code(s): E11.9 - Type 2 diabetes mellitus without complications Category: Medical Qualifiers: Diabetes mellitus complication status: with hyperglycemia Diabetes mellitus intermediate teacher insulin use: with skilled nursing use Diabetes mellitus type: type 2 Qualified Code(s): E11.65 - Type 2 diabetes mellitus with hyperglycemia; Z79.4 - terminal gauger (current) use of insulin Plan: This [id number] female with history of type 2 diabetes being treated with metformin with poor glycemic control and known macrovascular complications namely CAD. Plan is to have the patient check her point cares pre and post meals . Will attempt to Stacy 3 CGMS. Explained the relationship of poor glycemic control to development and progression complication. Once sensor is in place, may prescribe GLP-1 like Ozempic in combination (2) Postoperative hypothyroidism: Code(s): E89.0 - Postprocedural hypothyroidism Category: Medical Plan: This was not addressed during the visit as the patient is being seen for diabetes and her hyperthyroidism is followed by her primary care provider. However, I did notice TSH level> 100 and told the patient to follow up with the primary care provider regarding this. Medications: New blood-glucose sensor (FreeStyle Stacy 3 Sensor device) As directed change every 14 days 2 ea 4RF blood-glucose meter,continuous (FreeStyle Stacy 3 [place]) As directed 1 ea 0RF Coding Level of Care Code Tele New Pt Level 4 (12496) Diagnoses Type 2 diabetes mellitus with hyperglycemia, with long-term current use of insulin E11.65; Z79.4 Diabetes mellitus complication status: with hyperglycemia Diabetes mellitus intermediate teacher insulin use: with skilled nursing use Diabetes mellitus type: type 2 Postoperative hypothyroidism E89.0
[2023-07-15 10:45] VITALS: BP 130/64; PULSE 66; BMI 36.4
[2023-07-15 10:57] LABS: Glucose, Whole Blood 116 mg/dL (60-115)
== END 2023-07-15 11:11 | disposition home or self-care (01) ==
PROVIDERS: PCP Internal Medicine; Visit Provider Internal Medicine Endocrinology, Diabetes & Metabolism
DX: E11.65 Type 2 diabetes mellitus with hyperglycemia (principal); Z79.4 Long term (current) use of insulin; E89.0 Postprocedural hypothyroidism
CPT/HCPCS: 99214

== ENCOUNTER → 2023-07-15 10:37 | Outpatient (BNVA) | payer OTHER, SELFPAY | PROVIDERS: PCP Internal Medicine; Visit Provider Internal Medicine Endocrinology, Diabetes & Metabolism | DX: E11.65 Type 2 diabetes mellitus with hyperglycemia (principal); E89.0 Postprocedural hypothyroidism; Z79.4 Long term (current) use of insulin | CPT/HCPCS: 82947; 99212 ==

== ENCOUNTER 2023-07-26 10:48 | Outpatient (AMB) | payer OTHER, SELFPAY ==
--- NOTE | 2023-07-26 11:13 | A.OFFVIS_ITS ---
Intake Intake Visit Reasons: DM/LVM Physician Assistant Certified Required: Yes Physician Assistant Certified Language: Family Law Paralegal Name: Zabrina [facility] Information Interpreted: non-clinical & clinical Accompanied by: Daughter Allergies penicillin G [Penicillin G] Allergy (Mild, Verified 07/15/23 10:48) RASH HPI Comprehensive Diabetes Asmnt Most Recent Diabetes Results: No Data to Display [facility] Medical History Dementia COVID-19 vaccine administered Personal history of COVID-19 Cancer Elevated cholesterol Myocardial infarction CAD (coronary artery disease) Thyroid disease Incisional hernia, without obstruction or gangrene Diabetes mellitus HTN (hypertension) with goal to be determined Surgical History History of esophagogastroduodenoscopy (EGD) History of incisional hernia repair Hx of cholecystectomy Hx of partial nephrectomy Hx of thyroidectomy History of carpal tunnel surgery of right wrist History of colon resection Hx of cataract extraction Diverticula, colon History of umbilical hernia repair History of heart artery stent History of excision of mass History of knee surgery History of hysterectomy for benign disease Family History Mother No problems noted. Father No problems noted. Social History Household Members: Spouse Housing: House Are you a primary care services manager to a significant other at home: No Do you presently have visiting nurse or other home services: No Comment: pt sleeping Patient Tobacco Use Status: Never used Tobacco e-Cigarette/Vaping Use: Never Used Second Hand Smoke Exposure: No service: No Current occupational status: disabled Cognitive needs: Yes Hearing needs: No Vision needs: Yes Assessment & Plan Assessment & Plan (1) Diabetes mellitus: Comment: NIDDM Code(s): E11.9 - Type 2 diabetes mellitus without complications Qualifiers: Diabetes mellitus type: type 2 Diabetes mellitus chcf insulin use: with chcf use Diabetes mellitus complication status: with hyperglycemia Qualified Code(s): E11.65 - Type 2 diabetes mellitus with hyperglycemia; Z79.4 - senior care (current) use of insulin Plan: Learning objectives: The patient was provided with verbal and written education on the following topics as outlined below. The patient met all learning objectives and was able to verbalize understanding and provide teach back of education topics discussed . The patient was provided with the opportunity to ask questions and all questions were answered. Patient Assessment Assess patient education level/literacy/barriers Patient questions/concerns, patient is due for next A1c message will be sent to Dr. Ross to add A1c to existing lab orders Exercise Medical clearance Effect of exercise on blood sugar Start slowly and gradually increase pace/duration over time Goal amount of exercise Checking blood glucose/have a source of carbs with you Medications (If applicable) * Name of medication * Dosing/administration instructions * Mechanism of action * Potential side effects * Potential adverse reaction and appropriate treatment * Review onset, peak, duration Assess for concerns re: insurance coverage, cost, barriers to compliance Insulin/Injectables (If applicable) * Storage/care of insulin * Injection sites * Site rotation * Onset, peak, duration * Drawing up insulin * Injecting insulin/other injectables * Sharps disposal Continuous blood glucose monitoring (if applicable) Hypoglycemia and Hyperglycemia * Signs and symptoms * Causes * Treatment * Preventing hypoglycemia * When to seek medical attention Lifestyle * Stress management * Problem solving Know your goals * A1C * Blood sugar targets * Blood pressure * Cholesterol/LDL Urine microalbumin Smart Goal Assessment: Pt met goal:Pt has reduced sweet snacks, she has switched over to more sugar free snacks 75% of the time: New Goal:? Patient will get A1c drawn, for next visit Educational Materials: The patient was provided with the following written educational materials: ADCES 7 Healthy Behaviors Reducing Risks handout Patient Response to instructions: Comprehension of Instructions: Fair Readiness to make changes: Contemplation How confident they feel about making changes: Good Letter of completion of diabetes Education program will be sent to referring provider, once we receive next A1c Patient Instructions: Incluir actividad diaria regular. ADA recomienda 30 minutos de ejercicio 5 d?as a la semana. P?rdida de peso, hable con el PCP o el cardi?logo antes de comenzar un nuevo plan. Mida el nivel de az?car en la ankush seg?n las indicaciones; Ayuno y comida m?s mihaela de 2hpp. Observe las tendencias en los resultados. Utilice los resultados y eval?e c?mo los alimentos, la actividad f?jorge y los medicamentos afectan los resultados de az?car en la ankush. Lleve el gluc?metro o CGM a la pr?xima visita. Conocer los medicamentos para la diabetes, woo acci?n, los efectos secundarios, la eficacia, la toxicidad, la dosis prescrita, el momento y la frecuencia de administraci?n apropiados, el efecto de las dosis olvidadas y retrasadas y las instrucciones de almacenamiento, viaje y seguridad. T?cnicas de resoluci?n de problemas para el seguimiento de episodios de hipo/hiperglucemia y tratamientos. Reducir los comportamientos de reducci?n de riesgos, dejar de fumar, ex?menes regulares de ojos, pies y dentales. Coding Level of Care Code Est Pt Level 1 (55540) Diagnoses Type 2 diabetes mellitus with hyperglycemia, with long-term current use of insulin E11.65; Z79.4 Diabetes mellitus type: type 2 Diabetes mellitus chcf insulin use: with chcf use Diabetes mellitus complication status: with hyperglycemia
== END 2023-07-26 12:09 | disposition home or self-care (01) ==
PROVIDERS: PCP Internal Medicine; Visit Provider Registered Nurse Diabetes Educator
DX: E11.65 Type 2 diabetes mellitus with hyperglycemia (principal); Z79.4 Long term (current) use of insulin

== ENCOUNTER → 2023-07-26 10:48 | Outpatient (BNVA) | payer OTHER, SELFPAY | PROVIDERS: PCP Internal Medicine; Visit Provider Registered Nurse Diabetes Educator | DX: E11.65 Type 2 diabetes mellitus with hyperglycemia (principal); Z79.4 Long term (current) use of insulin | CPT/HCPCS: 99211 ==

== ENCOUNTER 2023-08-05 10:15 | Outpatient (REF) | payer OTHER, SELFPAY ==
[2023-08-05 11:22] LABS: Alanine Aminotransferase 14 U/L (0-31); Albumin Level 3.9 g/dL (3.5-5.0); Alkaline Phosphatase 67 U/L (39-117); Anion Gap 14 (12-20); Aspartate Amino Transferase 24 U/L (5-31); Bilirubin Total 0.3 mg/dL (0.0-1.0); Blood Urea Nitrogen 12 mg/dL (9-16); Calcium 8.8 mg/dL (8.4-10.2); Carbon Dioxide 26 mmol/L (22-29); Chloride 108 mmol/L (96-108); Cholesterol 264 mg/dL (<200); Estimated Glomerular Filt Rate 55; Glucose Fasting 136 mg/dL (60-99); HDL Cholesterol 63 mg/dL (>40); LDL Cholesterol Calculated 170 mg/dL (<100); Potassium 4.9 mmol/L (3.3-5.1); Sodium 143 mmol/L (135-145); Total Protein 7.3 g/dL (6.5-8.0); Triglycerides 159 mg/dL (<150)
[2023-08-05 11:41] LABS: Thyroid Stimulating Hormone 8.51 uIU/mL (0.32-4.0)
[2023-08-05 12:16] LABS: Estimated Average Glucose 154 mg/dL
[2023-08-05 12:39] LABS: Creatinine Urine 210.58 mg/dL; Microalbum/Creatinine Ratio Ur 11.3 ug/mg cr (<30)
== END 2023-08-05 10:16 | disposition home or self-care (01) ==
LOC: HO.LAB 10:15
PROVIDERS: PCP Internal Medicine; Visit Provider Internal Medicine
DX: E78.5 Hyperlipidemia, unspecified (principal); E89.0 Postprocedural hypothyroidism; E11.40 Type 2 diabetes mellitus with diabetic neuropathy, unspecified
CPT/HCPCS: 36415; 80053; 80061; 82043; 82570; 83036; 84443

== ENCOUNTER 2023-08-11 10:45 | Outpatient (AMB) | payer OTHER, SELFPAY ==
--- NOTE | 2023-08-11 10:51 | MHC.PC.OV ---
Vital Signs 08/11/23 10:52 Height 5 ft Weight 191 lb BMI 37.3 BP 160/92 H Blood Pressure Location Lt brachial Position Sitting Intake Visit Reasons: Hip/back pain Intake Note: Patient here c/o bilateral feet pain and swelling Irish Moss Bleacher Required: No Accompanied by: assistant finance manager Allergies penicillin G [Penicillin G] Allergy (Mild, Verified 08/11/23 11:10) RASH Medication List - Last Reconciled 08/11/23 by Lauren Lopez MD albuterol sulfate 90 mcg/actuation 90 mcg inhalation Q4H PRN amlodipine 5 mg PO DAILY 90 days aspirin 81 mg PO DAILY 90 days atorvastatin 40 mg PO DAILY blood sugar diagnostic As directed blood sugar diagnostic (FreeStyle Test strips) As directed tests 2 X/day blood-glucose meter (FreeStyle Lite Meter kit) As directed blood-glucose meter,continuous (FreeStyle Stacy 3 [place]) As directed blood-glucose sensor (FreeStyle Stacy 3 Sensor device) As directed change every 14 days gabapentin 100 mg PO BEDTIME hydroxyzine HCl 25 mg PO BID insulin degludec (Tresiba FlexTouch U-100 insulin) 10 units (0.1 mL) subcut DAILY 90 days lancets (FreeStyle Lancets) As directed levothyroxine 112 mcg PO DAILY 90 days lidocaine 4% (Aspercreme (lidocaine)) 1 patch topical DAILY PRN losartan 100 mg PO DAILY 90 days Magic Mouthwash Diphen/Lido/Antacid 1:1:1 10 mL PO TID 3 days memantine 10 mg PO BID metformin ER 1,000 mg PO DAILY 90 days nitroglycerin 1 tab sublingual NEEDED nystatin 1 appl topical BID PRN pantoprazole 40 mg PO DAILY 90 days pen needle, diabetic (BD Ultra-Fine Short Pen Needle) As directed potassium chloride ER (Klor-Con M) 20 mEq PO DAILY propranolol 20 mg PO DAILY sertraline 100 mg PO DAILY Tobacco use date assessed: 05/13/23 Dental Screening Dental Screen Date: 05/13/23 HPI HPI Comments History of Present Illness Details This is an 78-year-old female with diabetes mellitus type 2, hypertension, hyperlipidemia, hypothyroidism, dementia and mild major depression that comes today accompanied by DESPATCHING AND RECEIVING CLERK for follow-up on her conditions. A1c within goal. Blood pressure stable. LDL not on goal and I will increase atorvastatin from 40 mg to 80 mg. TSH has improved but still elevated and I will increase levothyroxine from 112 mcg to 125 mcg. DESPATCHING AND RECEIVING CLERK is aware that she has to recheck her TSH in 6 weeks. Dementia with no significant change and is on memantine. Depression also stable with sertraline and she follows with psychiatry. [facility] Medical History (Updated 08/11/23 @ 12:14 by Lauren Lopez MD) Dementia COVID-19 vaccine administered Personal history of COVID-19 Cancer Elevated cholesterol Myocardial infarction CAD (coronary artery disease) Thyroid disease Incisional hernia, without obstruction or gangrene Diabetes mellitus HTN (hypertension) with goal to be determined Surgical History History of esophagogastroduodenoscopy (EGD) History of incisional hernia repair Hx of cholecystectomy Hx of partial nephrectomy Hx of thyroidectomy History of carpal tunnel surgery of right wrist History of colon resection Hx of cataract extraction Diverticula, colon History of umbilical hernia repair History of heart artery stent History of excision of mass History of knee surgery History of hysterectomy for benign disease Family History Mother No problems noted. Father No problems noted. Social History Household Members: Spouse Housing: House Are you a primary after school caregiver to a significant other at home: No Do you presently have visiting nurse or other home services: No Comment: pt sleeping Patient Tobacco Use Status: Never used Tobacco e-Cigarette/Vaping Use: Never Used Second Hand Smoke Exposure: No service: No Current occupational status: disabled Cognitive needs: Yes Hearing needs: No Vision needs: Yes Questionnaire Thrive Questionnaire Date Thrive assessed: 05/13/23 BRITTANI-7 AMB Questionnaire BRITTANI-7 Date BRITTANI - 7 assessed: 05/13/23 Source: Developed by Drs. Ramon Hartman, Laine Plaza, Ye Lazaro and colleagues, with an educational liseth from [employer]. Review of Systems Const All systems reviewed & are unremarkable except as noted in HPI and below Eyes Reports no additional complaints, Denies change in vision and Denies other visual disturbances Card Denies chest pain at rest, Denies chest pain with activity, Denies edema, Denies irregular heart rhythm, Denies claudication, Denies dyspnea, Denies dyspnea on exertion, Denies orthopnea, Denies paroxysmal nocturnal dyspnea and Denies slow heart rate Resp Denies cough, Denies dyspnea and Denies dyspnea on exertion Physical exam (Primary Care) Vital Signs: Last Vital Signs BP 160/92 H 08/11/23 10:52 BMI result Body Mass Index 37.3 BMI Assessment/Plan discussion: High BMI High, discussed plan: lifestyle, weight reduction, dietary and physical activity Tobacco/Smoking Status: Tobacco use Status Tobacco use date assessed 05/13/23 08/11/23 10:52 Patient Tobacco Use Status Never used Tobacco 08/11/23 10:52 e-Cigarette/Vaping Use Never Used 08/11/23 10:52 Thrive Assessment: Date of Thrive Assessment Date Thrive assessed 05/13/23 08/11/23 10:52 Const Limitations: ambulation with walker Resp Effort & Inspection: normal respiratory effort Auscultation: clear to auscultation bilaterally Cardio Jugular venous distension: no JVD Rate: regular rate Rhythm: regular rhythm Heart sounds: S1 normal heart sound present and S2 normal heart sound present Extrem General: Yes full ROM Assessment and Plan Assessment & Plan (1) Dementia: Comment: Mild likely vascular vs mixed. Code(s): F03.90 - Unspecified dementia, unspecified severity, without behavioral disturbance, psychotic disturbance, mood disturbance, and anxiety Qualifiers: Dementia type: vascular dementia Dementia behavioral or psychological symptom: with mood disturbance Plan: Continue memantine. Follow-up with Neurology. (2) Hyperlipidemia LDL goal <70: Code(s): E78.5 - Hyperlipidemia, unspecified Plan: Increase atorvastatin from 40 mg to 80 mg. LDL goal is less than 70. (3) Essential hypertension: Code(s): I10 - Essential (primary) hypertension Plan: Continue losartan and amlodipine. Blood pressure goal is equal or less than 130/80. (4) Mild recurrent major depression: Code(s): F33.0 - Major depressive disorder, recurrent, mild Plan: Continue sertraline. Follow up with Psychiatry. (5) Postoperative hypothyroidism: Code(s): E89.0 - Postprocedural hypothyroidism Plan: Increase levothyroxine from 112 mcg to 125 mcg. Monitor TSH. (6) Diabetes mellitus: Comment: NIDDM Code(s): E11.9 - Type 2 diabetes mellitus without complications Qualifiers: Diabetes mellitus type: type 2 Diabetes mellitus longterm insulin use: with longterm use Diabetes mellitus complication status: with hyperglycemia Qualified Code(s): E11.65 - Type 2 diabetes mellitus with hyperglycemia; Z79.4 - watermaster (current) use of insulin Plan: Continue metformin. A1c goal is equal or less than 7%. Orders: Orders Thyroid Stimulating Hormone 6 Weeks E03.9 - Hypothyroidism, unspecified Medications: New atorvastatin 80 mg PO BEDTIME 90 days 90 tabs 1RF levothyroxine 125 mcg PO DAILY 90 days 90 tabs 0RF furosemide 20 mg PO DAILY 30 days 30 tabs 1RF Refilled amlodipine 5 mg PO DAILY 90 days 90 tabs 1RF Discontinued levothyroxine Discontinued Reason: Patient Completed Course 112 mcg PO DAILY 90 days 90 tabs 1RF Coding Level of Care Code Est Pt Level 4 (65450) Complex EM visit Add On G2211 Diagnoses Dementia F03.90 Dementia type: vascular dementia Dementia behavioral or psychological symptom: with mood disturbance Hyperlipidemia LDL goal <70 E78.5 Essential hypertension I10 Mild recurrent major depression F33.0 Postoperative hypothyroidism E89.0 Type 2 diabetes mellitus with hyperglycemia, with long-term current use of insulin E11.65; Z79.4 Diabetes mellitus type: type 2 Diabetes mellitus longterm insulin use: with terminal clerk use Diabetes mellitus complication status: with hyperglycemia Time Spent (min) 25
[2023-08-11 10:52] VITALS: BP 160/92; BMI 37.3
== END 2023-08-11 11:22 | disposition home or self-care (01) ==
PROVIDERS: PCP Internal Medicine; Visit Provider Internal Medicine
DX: E11.65 Type 2 diabetes mellitus with hyperglycemia (principal); F03.90 Unspecified dementia, unspecified severity, without behavioral disturbance, psychotic disturbance, mood disturbance, and anxiety; F33.0 Major depressive disorder, recurrent, mild; Z79.4 Long term (current) use of insulin; E78.5 Hyperlipidemia, unspecified; I10 Essential (primary) hypertension; E89.0 Postprocedural hypothyroidism
CPT/HCPCS: 99214; G2211

== ENCOUNTER → 2023-09-13 10:45 | Outpatient (BNV) | payer OTHER, SELFPAY | PROVIDERS: PCP Internal Medicine; Visit Provider Radiology Diagnostic Radiology | DX: Z12.31 Encounter for screening mammogram for malignant neoplasm of breast (principal) | CPT/HCPCS: 77063; 77067 ==

== ENCOUNTER 2023-09-13 10:51 | Outpatient (REF) | payer OTHER, SELFPAY ==
--- NOTE | ~2023-09-13 | MM_ITS ---
EXAMINATION: MM SCREENING DIGITAL BREAST TOMOSYNTHESIS, BILATERAL CLINICAL INFORMATION: Screening. Asymptomatic. COMPARISON: Mammography: This study is compared with prior exams dating back to TECHNIQUE: Digital breast tomosynthesis is performed in both the craniocaudal and mediolateral oblique views along with computer-aided detection (CAD). Synthesized 2D images are generated from the tomosynthesis. FINDINGS: The breasts are almost entirely fatty (ACR BI-RADS breast composition Category a). There are no significant masses, abnormal calcifications, or other abnormalities. MM/MM tomosynthesis screening BI IMPRESSION: No mammographic evidence of malignancy. ASSESSMENT: BI-RADS BI-RADS 1 - Negative RECOMMENDATION: Routine annual mammography screening. 1 year F/U This examination should not preclude the clinical evaluation of a suspicious palpable abnormality. This patient's information was entered into a reminder system with a target due date for their next mammogram.
== END 2023-09-13 10:52 | disposition home or self-care (01) ==
LOC: HO.MAMMO 10:51
PROVIDERS: PCP Internal Medicine; Visit Provider Internal Medicine
DX: Z12.31 Encounter for screening mammogram for malignant neoplasm of breast (principal)
CPT/HCPCS: 77063; 77067

== ENCOUNTER 2023-09-20 10:27 | Outpatient (AMB) | payer OTHER, SELFPAY ==
[2023-09-20 10:28] VITALS: BP 140/78; PULSE 68; O2SAT 97; BMI 37.0
--- NOTE | 2023-09-20 10:28 | A.OFFPC_ITS ---
Vital Signs 09/20/23 10:28 09/20/23 13:58 Height 5 ft Weight 189 lb 6.033 oz BMI 37.0 BP 140/78 H 140/80 H Blood Pressure Location Lt brachial Lt brachial Position Sitting Sitting Pulse 68 Pulse Source Pulse Oximeter Pulse Oximetry (%) 97 Oxygen Delivery Method Room Air Intake Visit Reasons: dm Intake Note: Patient is here to follow up Voice Coach Required: No Accompanied by: Self / Same As Patient Allergies penicillin G [Penicillin G] Allergy (Mild, Verified 09/20/23 10:56) RASH Medication List - Last Reconciled 09/20/23 by Lauren Lopez MD albuterol sulfate 90 mcg/actuation 90 mcg inhalation Q4H PRN amlodipine 5 mg PO DAILY 90 days aspirin 81 mg PO DAILY 90 days atorvastatin 80 mg PO BEDTIME 90 days blood sugar diagnostic As directed blood sugar diagnostic (FreeStyle Test strips) As directed tests 2 X/day blood-glucose meter (StudySoupStyle Lite Meter kit) As directed blood-glucose meter,continuous (FreeStyle Stacy 3 [place]) As directed blood-glucose sensor (FreeStyle Stacy 3 Sensor device) As directed change every 14 days furosemide 20 mg PO DAILY 30 days gabapentin 100 mg PO BEDTIME hydroxyzine HCl 25 mg PO BID insulin degludec (Tresiba FlexTouch U-100 insulin) 10 units (0.1 mL) subcut DAILY 90 days lancets (FreeStyle Lancets) As directed levothyroxine 125 mcg PO DAILY 90 days lidocaine 4% (Aspercreme (lidocaine)) 1 patch topical DAILY PRN losartan 100 mg PO DAILY 90 days Magic Mouthwash Diphen/Lido/Antacid 1:1:1 10 mL PO TID 3 days memantine 10 mg PO BID metformin ER 1,000 mg PO DAILY 90 days nitroglycerin 1 tab sublingual NEEDED nystatin 1 appl topical BID PRN pantoprazole 40 mg PO DAILY 90 days pen needle, diabetic (BD Ultra-Fine Short Pen Needle) As directed potassium chloride ER (Klor-Con M) 20 mEq PO DAILY propranolol 20 mg PO DAILY sertraline 100 mg PO DAILY Tobacco use date assessed: 05/13/23 Fall risk assessment: No Falls in past year Last assessed Fall Risk: 09/20/23 Dental Screening Dental Screen Date: 05/13/23 HPI HPI Comments History of Present Illness Details This is an 78-year-old female with diabetes mellitus type 2, hypertension, hyperlipidemia, hypothyroidism, mild major depression and dementia that comes today accompanied by FIRST OFFICER AND FLIGHT INSTRUCTOR for follow-up on her conditions. A1c within goal. Follow by Endocrinology. I will add Ozempic. Her insulin is place but a visiting nurse daily. Blood pressure borderline normal to elevated and this will be recheck in 3 weeks by nurse navigator. Last LDL was not on goal dietary changes were advised. TSH today was normal. Mild major depression stable with sertraline. She is awake, alert and oriented to person and place but not to time. Walks with a walker for gait stability. [facility] Medical History (Updated 09/20/23 @ 14:04 by Lauren Lopez MD) Dementia COVID-19 vaccine administered Personal history of COVID-19 Cancer Elevated cholesterol Myocardial infarction CAD (coronary artery disease) Thyroid disease Incisional hernia, without obstruction or gangrene Diabetes mellitus HTN (hypertension) with goal to be determined Surgical History History of esophagogastroduodenoscopy (EGD) History of incisional hernia repair Hx of cholecystectomy Hx of partial nephrectomy Hx of thyroidectomy History of carpal tunnel surgery of right wrist History of colon resection Hx of cataract extraction Diverticula, colon History of umbilical hernia repair History of heart artery stent History of excision of mass History of knee surgery History of hysterectomy for benign disease Family History Mother No problems noted. Father No problems noted. Social History Household Members: Spouse Housing: House Are you a primary student career development specialist to a significant other at home: No Do you presently have visiting nurse or other home services: No Comment: pt sleeping Patient Tobacco Use Status: Never used Tobacco e-Cigarette/Vaping Use: Never Used Second Hand Smoke Exposure: No service: No Current occupational status: disabled Cognitive needs: Yes Hearing needs: No Vision needs: Yes Questionnaire Thrive Questionnaire Date Thrive assessed: 05/13/23 AUDIT C Alcohol Use Questionnaire (AUDIT-C) 1. How often do you have a drink containing alcohol?: Never 3. How often do you have six or more drinks on one occasion?: Never Total Score: 0 BRITTANI-7 AMB Questionnaire BRITTANI-7 Date BRITTANI - 7 assessed: 05/13/23 Source: Developed by Drs. Ramon Hartman, Laine Plaza, Ye Lazaro and colleagues, with an educational liseth from [employer]. Review of Systems Const All systems reviewed & are unremarkable except as noted in HPI and below ENT Denies change in voice, Denies nasal discharge and Denies sinus pain Card Denies chest pain at rest, Denies chest pain with activity, Denies edema, Denies irregular heart rhythm, Denies claudication, Denies dyspnea, Denies dyspnea on exertion, Denies orthopnea, Denies paroxysmal nocturnal dyspnea and Denies slow heart rate Resp Denies cough, Denies dyspnea and Denies dyspnea on exertion Neuro Denies lack of coordination Physical exam (Primary Care) Vital Signs: Last Vital Signs Pulse 68 09/20/23 10:28 BP 140/78 H 09/20/23 10:28 Pulse Ox 97 09/20/23 10:28 Oxygen Delivery Method Room Air 09/20/23 10:28 BMI result Body Mass Index 37.0 BMI Assessment/Plan discussion: High BMI High, discussed plan: lifestyle, weight reduction, dietary and physical activity Tobacco/Smoking Status: Tobacco use Status Tobacco use date assessed 05/13/23 09/20/23 10:29 Patient Tobacco Use Status Never used Tobacco 09/20/23 10:29 e-Cigarette/Vaping Use Never Used 09/20/23 10:29 Thrive Assessment: Date of Thrive Assessment Date Thrive assessed 05/13/23 09/20/23 10:29 Const General: cooperative Nutritional Appearance: obese Limitations: ambulation with walker Resp Effort & Inspection: normal respiratory effort Auscultation: clear to auscultation bilaterally Cardio Jugular venous distension: no JVD Rate: regular rate Rhythm: regular rhythm Heart sounds: S1 normal heart sound present and S2 normal heart sound present Extrem General: Yes full ROM Assessment and Plan Assessment & Plan (1) Hypothyroidism: Code(s): E03.9 - Hypothyroidism, unspecified Qualifiers: Hypothyroidism type: acquired Qualified Code(s): E03.9 - Hypothyroidism, unspecified Plan: Continue levothyroxine. (2) Dementia: Comment: Mild likely vascular vs mixed. Code(s): F03.90 - Unspecified dementia, unspecified severity, without behavioral disturbance, psychotic disturbance, mood disturbance, and anxiety Qualifiers: Dementia type: vascular dementia Dementia behavioral or psychological symptom: with mood disturbance Dementia severity: mild Qualified Code(s): F01.A3 - Vascular dementia, mild, with mood disturbance Plan: Continue memantine. Follow-up with Neurology. (3) Mild recurrent major depression: Code(s): F33.0 - Major depressive disorder, recurrent, mild Plan: Continue sertraline. (4) Essential hypertension: Code(s): I10 - Essential (primary) hypertension Plan: Continue losartan and amlodipine. Blood pressure goal is equal or less than 130/80. (5) Hyperlipidemia LDL goal <70: Code(s): E78.5 - Hyperlipidemia, unspecified Plan: Continue statins. Start low-cholesterol diet. LDL goal is less than 70. (6) Diabetes mellitus: Comment: NIDDM Code(s): E11.9 - Type 2 diabetes mellitus without complications Qualifiers: Diabetes mellitus type: type 2 Diabetes mellitus dean of girls insulin use: with dean of girls use Diabetes mellitus complication status: with hyperglycemia Qualified Code(s): E11.65 - Type 2 diabetes mellitus with hyperglycemia; Z79.4 - senior care (current) use of insulin Plan: Continue insulin, metformin and Ozempic. A1c goal is equal or less than 7%. Follow-up with endocrinology. Orders: Orders Thyroid Stimulating Hormone Today E03.9 - Hypothyroidism, unspecified Medications: New semaglutide (Ozempic) for 4 weeks 0.25 mg (0.368 mL) subcut QWEEK 4 weeks 1.472 mL 0RF Coding Level of Care Code Est Pt Level 4 (82107) Complex EM visit Add On G2211 Diagnoses Acquired hypothyroidism E03.9 Hypothyroidism type: acquired Mild vascular dementia with mood disturbance F01.A3 Dementia type: vascular dementia Dementia behavioral or psychological symptom: with mood disturbance Dementia severity: mild Mild recurrent major depression F33.0 Essential hypertension I10 Hyperlipidemia LDL goal <70 E78.5 Type 2 diabetes mellitus with hyperglycemia, with long-term current use of insulin E11.65; Z79.4 Diabetes mellitus type: type 2 Diabetes mellitus intermediate insulin use: with intermediate use Diabetes mellitus complication status: with hyperglycemia Time Spent (min) 25
[2023-09-20 13:58] VITALS: BP 140/80
== END 2023-09-20 11:08 | disposition home or self-care (01) ==
PROVIDERS: PCP Internal Medicine; Visit Provider Internal Medicine
DX: E03.9 Hypothyroidism, unspecified (principal); F01.A3 Vascular dementia, mild, with mood disturbance; F33.0 Major depressive disorder, recurrent, mild; E11.65 Type 2 diabetes mellitus with hyperglycemia; Z79.4 Long term (current) use of insulin; I10 Essential (primary) hypertension; E78.5 Hyperlipidemia, unspecified
CPT/HCPCS: 99214; G2211

== ENCOUNTER 2023-09-20 11:20 | Outpatient (REF) | payer OTHER, SELFPAY ==
[2023-09-20 12:55] LABS: Thyroid Stimulating Hormone 2.42 uIU/mL (0.32-4.0)
== END 2023-09-20 11:21 | disposition home or self-care (01) ==
LOC: HO.LAB 11:20
PROVIDERS: PCP Internal Medicine; Visit Provider Internal Medicine
DX: E03.9 Hypothyroidism, unspecified (principal)
CPT/HCPCS: 36415; 84443

== ENCOUNTER 2023-11-18 10:59 | Outpatient (AMB) | payer OTHER, SELFPAY ==
[2023-11-18 11:42] VITALS: BP 138/76; PULSE 79; BMI 36.6
--- NOTE | 2023-11-18 11:42 | A.OFFVIS_ITS ---
Vital Signs 11/18/23 11:42 Height 5 ft Weight 187 lb 6.287 oz BMI 36.6 BP 138/76 Blood Pressure Location Rt brachial Position Sitting Pulse 79 Pulse Source Pulse Oximeter Intake Visit Reasons: DM/CONFIRMED Intake Note: Patient presents today to re-establish treatment for Type 2 Diabetes Mellitus: Last Diabetic Eye exam: 08/2022 Last Podiatry Visit: Doesn't have one. Random Glucose: 116 mg/dL Most recent HgA1c: 7.2%, 05/13/23 Hotel Guest Service Agent Required: Yes Hotel Guest Service Agent Language: Loom Fixer Services: Hotel Guest Service Agent Offered & Declined (Patient signed the refusal to accept interpretative services (son)) Information Interpreted: non-clinical & clinical Accompanied by: Son Allergies penicillin G [Penicillin G] Allergy (Mild, Verified 11/18/23 11:49) RASH HPI Comments Details: 78 YO female who is seen in f/u for T2DM. She was last seen by Dr. George in July. Initially diagnosed with T2DM approx 2018. Was initially started on treatment with metformin. Current regimen metformin 500 mg QD . Tenlegssiba 10 units Glucometer download shows she is checking her point of care once a day with average 105 no hypoglycemia symptoms Family history of T2DM in sister , brother has Type 2 DM . Has eyes checked yearly, last eye exam last yr. Has appt scheduledthis yr , denies retinopathy. Denies neuropathy, does not see podiatry. Denies nephropathy, on ABRAHAN/ARB. Microalbumin 24 eGFR 07/2023 Has HLD, now on statin atorvastatin 40 mg . Last LDL [177] as measured on 08/05 when her TSH level was 100. She has had an adjustment in thyroid medication and is now euthyroid (managed by PCP) Denies CAD. Has seen DM educator several times this year [facility] Medical History Dementia COVID-19 vaccine administered Personal history of COVID-19 Cancer Elevated cholesterol Myocardial infarction CAD (coronary artery disease) Thyroid disease Incisional hernia, without obstruction or gangrene Diabetes mellitus HTN (hypertension) with goal to be determined Surgical History History of esophagogastroduodenoscopy (EGD) History of incisional hernia repair Hx of cholecystectomy Hx of partial nephrectomy Hx of thyroidectomy History of carpal tunnel surgery of right wrist History of colon resection Hx of cataract extraction Diverticula, colon History of umbilical hernia repair History of heart artery stent History of excision of mass History of knee surgery History of hysterectomy for benign disease Family History Mother No problems noted. Father No problems noted. Social History Household Members: Spouse Housing: House Are you a primary vocational childcare teacher to a significant other at home: No Do you presently have visiting nurse or other home services: No Comment: pt sleeping Patient Tobacco Use Status: Never used Tobacco e-Cigarette/Vaping Use: Never Used Second Hand Smoke Exposure: No service: No Current occupational status: disabled Cognitive needs: Yes Hearing needs: No Vision needs: Yes Physical Exam Vital Signs: Last Vital Signs Pulse 79 11/18/23 11:42 BP 138/76 11/18/23 11:42 BMI result Body Mass Index 36.6 Const Other: Absence of Cushingoid features. Absence of acromegalic features. Neck exam reveals nl size thyroid about 15 gms. No thyroid nodules palpable. Heart S1 S2, Reg R/R. No M/R G. Skin exam reveals absence of vitiligo or acanthosis nigricans. No edema Results AMB Hemoglobin A1c AMB Hemoglobin A1c 7.2 % Last Edit by SHAUN Crystal on 11/18/23 12:05 Results Reviewed Results Reviewed: Laboratory Last Values Glucose (Clinic) 119 mg/dL (60-115) H 11/18/23 11:50 Hgb A1c (Clinic) 7.2 % (4.0-6.0) H 11/18/23 12:04 Laboratory Tests 08/05/23 09/20/23 11/18/23 10:38 11:29 12:04 Potassium 4.9 Fasting Glucose 136 H Hgb A1c (Clinic) 7.2 H Hemoglobin A1c % 7.0 H Triglycerides 159 H Cholesterol 264 H LDL Cholesterol, Calc 170 H TSH 2.42 Assessment & Plan Assessment & Plan (1) Diabetes mellitus: Comment: NIDDM Code(s): E11.9 - Type 2 diabetes mellitus without complications Category: Medical Qualifiers: Diabetes mellitus type: type 2 Diabetes mellitus halfway insulin use: with halfway use Diabetes mellitus complication status: with hyperglycemia Qualified Code(s): E11.65 - Type 2 diabetes mellitus with hyperglycemia; Z79.4 - watermaster (current) use of insulin Plan: A1c well controlled in his type 2 diabetic. Can increase Ozempic and wean off insulin pump Orders: Orders AMB Hemoglobin A1c 11/18/23 E11.65 - Type 2 diabetes mellitus with hyperglycemia, Z79.4 - senior living (current) use of insulin Medications: New semaglutide (Ozempic) 0.5 mg (0.736 mL) subcut QWEEK 3 mL 11RF 28 days E11.65 - Type 2 diabetes mellitus with hyperglycemia, Z79.4 - watermaster (current) use of insulin Changed From metformin ER 1,000 mg PO DAILY 90 days 90 tabs 1RF E11.9 - Type 2 diabetes mellitus without complications To metformin ER 1,000 mg PO DAILY 90 tabs 1RF 90 days E11.9 - Type 2 diabetes mellitus without complications Discontinued semaglutide for 4 weeks Discontinued Reason: Doctor's Order 0.25 mg (0.368 mL) subcut QWEEK 4 weeks 1.472 mL 0RF Coding Level of Care Code Est Pt Level 3 (60420) Complex EM visit Add On G2211 Diagnoses Type 2 diabetes mellitus with hyperglycemia, with long-term current use of insulin E11.65; Z79.4 Diabetes mellitus type: type 2 Diabetes mellitus medical terminologist insulin use: with medical terminologist use Diabetes mellitus complication status: with hyperglycemia Time Spent (min) 30 Comment Time spent reviewing labs/provider notes, face to face, chart doc
[2023-11-18 11:55] LABS: Glucose, Whole Blood 119 mg/dL (60-115)
== END 2023-11-18 12:16 | disposition home or self-care (01) ==
PROVIDERS: PCP Internal Medicine; Visit Provider Nurse Practitioner Adult Health
DX: E11.65 Type 2 diabetes mellitus with hyperglycemia (principal); Z79.4 Long term (current) use of insulin
CPT/HCPCS: 99213; G2211

== ENCOUNTER → 2023-11-18 10:59 | Outpatient (BNVA) | payer OTHER, SELFPAY | PROVIDERS: PCP Internal Medicine; Visit Provider Nurse Practitioner Adult Health | DX: E11.65 Type 2 diabetes mellitus with hyperglycemia (principal); Z79.4 Long term (current) use of insulin | CPT/HCPCS: 82947; 83036; 99212 ==